=== PATIENT | male | born 1985 | race American Indian/Alaskan Native ===

== ENCOUNTER 2017-08-15 23:45 | Emergency (ER) | payer SELFPAY ==
[2017-08-16 00:06] VITALS: BP 117/81
[2017-08-16] MEDS ORDERED: ASPIRIN PO ONE (00:07)
[2017-08-16 00:32] LABS: Basophils % (Auto) 0.2 % (0.0-1.8); Eosinophils # (Auto) 0.1 K/mm3 (0.0-0.4); Eosinophils % (Auto) 1.7 % (0.0-4.3); Hemoglobin 14.9 gm/dl (11.8-15.2); Lymphocytes # (Auto) 3.2 K/mm3 (1.2-5.4); Lymphocytes % (Auto) 42.1 % (13.4-35.0); Mean Corpuscular HGB Conc 33 % (32-34); Mean Corpuscular Hemoglobin 29 pg (28-32); Mean Corpuscular Volume 88 fl (84-94); Monocytes # (Auto) 0.7 K/mm3 (0.0-0.8); Monocytes % (Auto) 9.5 % (0.0-7.3); Platelet Count 203 K/mm3 (140-440); Red Blood Count 5.11 M/mm3 (3.65-5.03); Red Cell Distribution Width 13.5 % (13.2-15.2)
[2017-08-16 00:43] LABS: BUN/Creatinine Ratio 10; Blood Urea Nitrogen 8 mg/dL (9-20); Calcium 8.6 mg/dL (8.4-10.2); Hemolysis Index 133
== END 2017-08-16 02:40 | disposition left against medical advice (07) ==
LOC: ED 23:45
DX: R07.89 Other chest pain (principal); Z53.21 Procedure and treatment not carried out due to patient leaving prior to being seen by health care provider
CPT/HCPCS: 36415; 80048; 84484; 85025; 93005; 93010

== ENCOUNTER 2017-11-29 21:36 | Emergency (ER) | payer SELFPAY ==
[2017-11-30 00:12] LABS: Alanine Aminotransferase 13 units/L (7-56); Albumin 4.4 g/dL (3.9-5); BUN/Creatinine Ratio 9; Blood Urea Nitrogen 9 mg/dL (9-20); Hemolysis Index 5
[2017-11-30 00:15] LABS: Basophils % (Auto) 0.5 % (0.0-1.8); Eosinophils # (Auto) 0.3 K/mm3 (0.0-0.4); Eosinophils % (Auto) 3.8 % (0.0-4.3); Hematocrit 43.4 % (35.5-45.6); Hemoglobin 14.5 gm/dl (11.8-15.2); Lymphocytes # (Auto) 3.2 K/mm3 (1.2-5.4); Lymphocytes % (Auto) 40.9 % (13.4-35.0); Mean Corpuscular HGB Conc 33 % (32-34); Mean Corpuscular Hemoglobin 30 pg (28-32); Mean Corpuscular Volume 89 fl (84-94); Monocytes # (Auto) 0.8 K/mm3 (0.0-0.8); Monocytes % (Auto) 10.4 % (0.0-7.3); Platelet Count 163 K/mm3 (140-440); Red Blood Count 4.87 M/mm3 (3.65-5.03); Red Cell Distribution Width 13.3 % (13.2-15.2)
--- NOTE | 2017-11-30 03:08 | Emergency Department Report ---
ED General Adult HPI - General Chief complaint: Extremity Injury, Lower Stated complaint: RIGHT LEG SWELLING Time Seen by Provider: 11/30/17 02:56 Source: patient Mode of arrival: Ambulatory Limitations: No Limitations - History of Present Illness Initial comments: Patient is a 32 years old male with no significant past medical history. Patient presented to the ER complaining of right leg swelling since yesterday. Patient denied any injury, fever, long travel or history of DVT or PE before. - Related Data Previous Rx's Medication Instructions Recorded Last Taken Type Naproxen [Naprosyn] 500 mg PO BID #14 tablet 11/30/17 Unknown Rx Allergies Allergy/AdvReac Type Severity Reaction Status Date / Time No Known Allergies Allergy Verified 08/16/17 08:34 ED Review of Systems ROS: Stated complaint: RIGHT LEG SWELLING Other details as noted in HPI Comment: All other systems reviewed and negative ENT: denies: throat pain, dental pain Cardiovascular: denies: chest pain, palpitations, dyspnea on exertion Gastrointestinal: denies: abdominal pain, nausea, vomiting, diarrhea, constipation, hematemesis, melena, hematochezia Genitourinary: denies: urgency, dysuria, frequency, hematuria, discharge, testicular pain, testicular mass Neurological: denies: headache, weakness, numbness, paresthesias, confusion ED Past Medical Hx - Past Medical History Previous Medical History?: No - Surgical History Past Surgical History?: No - Social History Smoking Status: Never Smoker Substance Use Type: None - Medications Home Medications: Home Medications Medication Instructions Recorded Confirmed Last Taken Type Naproxen [Naprosyn] 500 mg PO BID #14 tablet 11/30/17 Unknown Rx ED Physical Exam - General Limitations: No Limitations General appearance: alert, in no apparent distress - Head Head exam: Present: atraumatic, normocephalic, normal inspection - ENT ENT exam: Present: normal exam, normal orophraynx - Neck Neck exam: Present: normal inspection, full ROM. Absent: tenderness, meningismus, lymphadenopathy, thyromegaly - Respiratory Respiratory exam: Present: normal lung sounds bilaterally. Absent: respiratory distress, wheezes, rales, rhonchi, chest wall tenderness, accessory muscle use, decreased breath sounds, prolonged expiratory - Cardiovascular Cardiovascular Exam: Present: regular rate, normal rhythm, normal heart sounds - GI/Abdominal GI/Abdominal exam: Present: soft, normal bowel sounds. Absent: distended, tenderness, guarding, rebound, rigid, organomegaly, mass, bruit, pulsatile mass , hernia - Extremities Exam Extremities exam: Present: normal inspection, full ROM, normal capillary refill , other (no clinical evidence of swelling on the right leg.). Absent: tenderness, pedal edema, joint swelling, calf tenderness - Back Exam Back exam: Present: normal inspection, full ROM. Absent: tenderness, CVA tenderness (R), CVA tenderness (L), paraspinal tenderness, vertebral tenderness - Neurological Exam Neurological exam: Present: alert, oriented X3, CN II-XII intact, normal gait - Skin Skin exam: Present: warm ED Course Vital Signs 11/29/17 11/30/17 11/30/17 22:12 04:25 05:19 Temperature 64 F L 98.4 F Pulse Rate 64 70 75 Respiratory 17 16 16 Rate Blood Pressure 134/82 Blood Pressure 123/69 127/59 [Right] O2 Sat by Pulse 99 99 100 Oximetry 11/30/17 05:20 Temperature Pulse Rate 77 Respiratory Rate Blood Pressure Blood Pressure [Right] O2 Sat by Pulse Oximetry ED Medical Decision Making - Lab Data Result diagrams: 11/29/17 22:34 11/29/17 22:34 - Medical Decision Making Patient is a low-risk probability for DVT with a negative d-dimer. I advised patient to follow up with his primary care physician and follow-up for further testing if needed. Critical care attestation.: If time is entered above; I have spent that time in minutes in the direct care of this critically ill patient, excluding procedure time. ED Disposition Clinical Impression: Right leg swelling Disposition: -01 TO HOME OR SELFCARE Is pt being admited?: No Condition: Stable Instructions: Leg Edema (ED) Prescriptions: Naproxen [Naprosyn] 500 mg PO BID #14 tablet Referrals: PRIMARY CARE, [Primary Care Provider] - 3-5 Days
[2017-11-30 05:20] VITALS: BP 127/59
== END 2017-11-30 05:20 | disposition home or self-care (01) ==
LOC: ED 21:36
DX: M79.89 Other specified soft tissue disorders (principal)
CPT/HCPCS: 36415; 80053; 85025; 85379; 99282

== ENCOUNTER 2018-07-08 13:21 | Emergency (ER) | payer SELFPAY | END 2018-07-08 14:41 | LOC: ED 13:21 ==

== ENCOUNTER 2018-07-08 16:31 | Emergency (ER) | payer SELFPAY ==
[2018-07-08 16:38] VITALS: BP 110/67
--- NOTE | 2018-07-08 17:32 | Emergency Department Report ---
ED Back Pain/Injury HPI - General Chief Complaint: Back Pain/Injury Stated Complaint: (R) SIDE PAIN Time Seen by Provider: 07/08/18 17:15 Source: patient Limitations: No Limitations - History of Present Illness Complaint: back pain -: Gradual, month(s) (4) Similar Symptoms Previously: Yes Place: home Radiation: none Severity: mild Quality: dull, aching Consistency: constant Improves With: none Worsens With: movement, sitting upright, walking, other (twisting back) Context: turning/twisting, bending Associated Symptoms: other (no loss of bowel or bladder. normal urniation). denies: weakness, difficulty walking, cough, difficulty urinating, diaphoresis, incontinence, malaise, shortness of breath, syncope - Related Data Previous Rx's Medication Instructions Recorded Last Taken Type Acetaminophen [Acetaminophen TAB] 650 mg PO Q4H PRN #15 tablet 04/19/18 Unknown Rx Doxycycline [Vibramycin CAP] 100 mg PO Q12HR #14 capsule 04/19/18 Unknown Rx Polyethylene Glycol 3350 [Miralax 17 gm PO QDAY PRN #30 powd.pack 04/19/18 Unknown Rx 3350] amLODIPine [Norvasc] 2.5 mg PO QDAY #30 tablet 04/19/18 Unknown Rx methylPREDNISolone [Medrol Dose 1 dose PO DAILY #1 pack 04/19/18 Unknown Rx Madhav] oxyCODONE /ACETAMINOPHEN [Percocet 1 tab PO Q6H PRN #10 tablet 04/19/18 Unknown Rx 5/325 mg] Cyclobenzaprine [Flexeril] 10 mg PO TID PRN #30 tablet 07/01/18 Unknown Rx Menthol/Camphor [[place] 1 applicatio TP QID PRN #1 tube 07/01/18 Unknown Rx Ointment] Naproxen [Naprosyn] 500 mg PO BID PRN #30 tablet 07/01/18 Unknown Rx Ketorolac [Toradol] 10 mg PO Q6H PRN #20 tablet 07/08/18 Unknown Rx Methocarbamol [Robaxin-750] 750 mg PO Q8HR #20 tablet 07/08/18 Unknown Rx Allergies Allergy/AdvReac Type Severity Reaction Status Date / Time No Known Allergies Allergy Verified 01/27/18 08:51 ED Review of Systems ROS: Stated complaint: (R) SIDE PAIN Other details as noted in HPI Constitutional: denies: chills, fever Eyes: denies: eye pain, eye discharge, vision change ENT: denies: ear pain, throat pain Respiratory: denies: cough, shortness of breath, wheezing Cardiovascular: denies: chest pain, palpitations Endocrine: no symptoms reported Gastrointestinal: denies: abdominal pain, nausea, diarrhea Genitourinary: denies: urgency, dysuria Musculoskeletal: back pain. denies: joint swelling, arthralgia Skin: denies: rash, lesions Neurological: denies: headache, weakness, paresthesias Psychiatric: denies: anxiety, depression Hematological/Lymphatic: denies: easy bleeding, easy bruising ED Past Medical Hx - Past Medical History Previous Medical History?: No Hx Congestive Heart Failure: (this is questionable pt denies) Hx Diabetes: No Hx Asthma: No Hx COPD: No Additional medical history: Questionable history of hep C,right knee/leg pain,anxiety disorder pt. denies any history - Surgical History Past Surgical History?: No Additional Surgical History: patient denies any surgeries - Social History Smoking Status: Never Smoker Substance Use Type: None - Medications Home Medications: Home Medications Medication Instructions Recorded Confirmed Last Taken Type Acetaminophen [Acetaminophen TAB] 650 mg PO Q4H PRN #15 tablet 04/19/18 Unknown Rx Doxycycline [Vibramycin CAP] 100 mg PO Q12HR #14 capsule 04/19/18 Unknown Rx Polyethylene Glycol 3350 [Miralax 17 gm PO QDAY PRN #30 powd.pack 04/19/18 Unknown Rx 3350] amLODIPine [Norvasc] 2.5 mg PO QDAY #30 tablet 04/19/18 Unknown Rx methylPREDNISolone [Medrol Dose 1 dose PO DAILY #1 pack 04/19/18 Unknown Rx Madhav] oxyCODONE /ACETAMINOPHEN [Percocet 1 tab PO Q6H PRN #10 tablet 04/19/18 Unknown Rx 5/325 mg] Cyclobenzaprine [Flexeril] 10 mg PO TID PRN #30 tablet 07/01/18 Unknown Rx Menthol/Camphor [[place] 1 applicatio TP QID PRN #1 tube 07/01/18 Unknown Rx Ointment] Naproxen [Naprosyn] 500 mg PO BID PRN #30 tablet 07/01/18 Unknown Rx Ketorolac [Toradol] 10 mg PO Q6H PRN #20 tablet 07/08/18 Unknown Rx Methocarbamol [Robaxin-750] 750 mg PO Q8HR #20 tablet 07/08/18 Unknown Rx ED Physical Exam - General Limitations: No Limitations General appearance: alert, in no apparent distress - Head Head exam: Present: atraumatic, normocephalic - Eye Eye exam: Present: normal appearance. Absent: PERRL, EOMI Pupils: Absent: normal accommodation - ENT ENT exam: Present: normal exam, mucous membranes moist - Neck Neck exam: Present: normal inspection - Respiratory Respiratory exam: Present: normal lung sounds bilaterally. Absent: respiratory distress - Cardiovascular Cardiovascular Exam: Present: regular rate, normal rhythm. Absent: systolic murmur, diastolic murmur, rubs, gallop - GI/Abdominal GI/Abdominal exam: Present: soft, normal bowel sounds. Absent: tenderness, guarding - Rectal Rectal exam: Present: deferred - Extremities Exam Extremities exam: Present: normal inspection, normal capillary refill - Back Exam Back exam: Present: normal inspection, muscle spasm, paraspinal tenderness, other (pain with slr. neg spurlings). Absent: CVA tenderness (R), CVA tenderness (L), vertebral tenderness, rash noted - Neurological Exam Neurological exam: Present: alert, oriented X3, CN II-XII intact, normal gait - Psychiatric Psychiatric exam: Present: normal affect, normal mood - Skin Skin exam: Present: warm, dry, intact, normal color. Absent: rash ED Course Vital Signs 07/08/18 16:34 Temperature 98.6 F Pulse Rate 65 Respiratory 16 Rate Blood Pressure 110/67 O2 Sat by Pulse 99 Oximetry Critical care attestation.: If time is entered above; I have spent that time in minutes in the direct care of this critically ill patient, excluding procedure time. ED Disposition Clinical Impression: Low back strain, Lumbago Disposition: - TO HOME OR SELFCARE Is pt being admited?: No Does the pt Need Aspirin: No Condition: Stable Instructions: Back Pain (ED), Lumbar Radiculopathy (ED) Prescriptions: Ketorolac [Toradol] 10 mg PO Q6H PRN #20 tablet PRN Reason: Pain Methocarbamol [Robaxin-750] 750 mg PO Q8HR #20 tablet Referrals: PRIMARY CARE, [Primary Care Provider] - 3-5 Days AMRITA ALLRED MD [Staff Physician] - 3-5 Days [facility] [Provider Group] - 3-5 Days
== END 2018-07-08 17:47 | disposition home or self-care (01) ==
LOC: ED 16:31 → MERGE 16:31 → ED 17:47
DX: S39.012A Strain of muscle, fascia and tendon of lower back, initial encounter (principal); X58.XXXA Exposure to other specified factors, initial encounter; Y93.89 Activity, other specified; Y92.89 Other specified places as the place of occurrence of the external cause; Y99.8 Other external cause status
CPT/HCPCS: 99282

== ENCOUNTER 2018-08-06 06:56 | Emergency (ER) | payer SELFPAY ==
[2018-08-06] MEDS ORDERED: IBUPROFEN PO ONE (07:57)
[2018-08-06] MEDS ORDERED: FLEXERIL PO ONE (07:57)
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
[2018-08-06 09:13] VITALS: BP 130/70
--- NOTE | 2018-08-06 09:26 | Cat Scan Report ---
CT SCAN OF THE CERVICAL SPINE: HISTORY: Pain. TECHNIQUE: Contiguous 1.25 mm axial images of the cervical spine were obtained. Sagittal and coronal reformatted images. FINDINGS: There is normal alignment of the cervical spine. The body, pedicles and posterior ligaments appear normal. No evidence of fracture or subluxation is seen. The spinal canal appears normal. The prevertebral soft tissues appear normal. IMPRESSION: Unremarkable CT of the cervical spine.
--- NOTE | 2018-08-06 09:28 | Cat Scan Report ---
CT LUMBAR SPINE WITHOUT CONTRAST History: Pain. Technique: Helical CT with sagittal and coronal reformatted images. Findings: The vertebral bodies and posterior elements are intact. There is no evidence for fracture, subluxation or bone lesion. Mild disc space narrowing is suspected at L4-5. Mild bulging discs are suggested at L3-4 and L4-5. Although intraspinal contents can be obscured on noncontrast CT, no high-grade central canal stenosis or epidural hematoma is suspected. Impression: Mild degenerative disc disease at L3-4 and L4-5. No acute process.
== END 2018-08-06 09:11 | disposition home or self-care (01) ==
LOC: ED 06:56 → MERGE 06:56 → ED 09:11
DX: M54.2 Cervicalgia (principal); M54.5 Low back pain; V89.0XXA Person injured in unspecified motor-vehicle accident, nontraffic, initial encounter; Y93.89 Activity, other specified; Y92.410 Unspecified street and highway as the place of occurrence of the external cause; Y99.8 Other external cause status
CPT/HCPCS: 72125; 72131; 99283

== ENCOUNTER 2018-09-15 20:45 | Emergency (ER) | payer OTHER ==
--- NOTE | 2018-09-15 21:26 | Emergency Department Report ---
Chief Complaint: Back Pain/Injury Stated Complaint: BACK PAIN Time Seen by Provider: 09/15/18 21:25 - HPI History of Present Illness: This is a 33 y.o. male that presents with acute on chronic low back pain x 1 week. - ROS Review of Systems: low back pain - Exam Vital Signs: Vital Signs 09/15/18 21:24 Temperature 98.4 F Pulse Rate 64 Respiratory 16 Rate Blood Pressure 122/80 O2 Sat by Pulse 99 Oximetry MSE screening note: Focused history and physical exam performed. Due to findings the following was ordered: [facility] for further evaluation ED Disposition for MSE Condition: Stable
--- NOTE | 2018-09-15 23:26 | Emergency Department Report ---
ED Back Pain/Injury HPI - General Chief Complaint: Back Pain/Injury Stated Complaint: BACK PAIN Time Seen by Provider: 09/15/18 21:25 Source: patient Limitations: No Limitations - History of Present Illness Initial Comments: This is a 33-year-old [place] male that presents to the emergency room with acute on chronic low back pain x 1 week. Patient states he was seen in this e mergency room several times and usually receives refills on muscle relaxants and pain medication. States primary care is at [place] and it is very hard to get an appointment. He currently reports pain is 8 out of 10 on pain scale worse with movement. He reports pain is achy sensation to lower back. He denies recent injury, warm to area, paresthesias, weaknesses, numbness or tingling, swelling, or bruising. MD Complaint: back pain Onset/Timin -: week(s) Similar Symptoms Previously: Yes Place: home Radiation: none Severity: moderate Severity scale (0 -10): 8 Quality: aching Consistency: intermittent Improves With: none Worsens With: movement Context: unknown Associated Symptoms: denies: numbness, difficulty urinating, incontinence, fever/chills - Related Data Previous Rx's Medication Instructions Recorded Last Taken Type amLODIPine [Norvasc] 2.5 mg PO QDAY #30 tablet 04/19/18 Unknown Rx Menthol/Camphor [[place] 1 applicatio TP QID PRN #1 tube 07/01/18 Unknown Rx Ointment] Cyclobenzaprine [Flexeril] 10 mg PO TID PRN #10 tablet 08/06/18 Unknown Rx predniSONE [Deltasone] 20 mg PO DAILY #5 tablet 08/06/18 Unknown Rx Naproxen [Naprosyn] 500 mg PO TID PRN #20 tablet 09/15/18 Unknown Rx methOCARBAMOL [Robaxin TAB] 500 mg PO BID PRN #15 tab 09/15/18 Unknown Rx Allergies Allergy/AdvReac Type Severity Reaction Status Date / Time No Known Allergies Allergy Verified 01/27/18 08:51 ED Review of Systems ROS: Stated complaint: BACK PAIN Other details as noted in HPI Constitutional: denies: chills, fever Respiratory: denies: cough, shortness of breath, wheezing Cardiovascular: denies: chest pain, palpitations Gastrointestinal: denies: abdominal pain, nausea, diarrhea Musculoskeletal: back pain (lower back). denies: joint swelling, arthralgia Skin: denies: rash, lesions Neurological: denies: headache, weakness, paresthesias Psychiatric: denies: anxiety, depression ED Past Medical Hx - Past Medical History Questionable history of hep C,right knee/leg pain,anxiety disorder pt. denies any history Family history: no significant family history ED Back Pain Physical Exam - Exam General: Vital signs noted. No distress. Alert and acting appropriately. Back/Abdomen: Yes Sacroiliac Tenderness, No Abdominal Tenderness, No Perithoracic Tenderness, No Perilumbar Tenderness, No Flank Tenderness, No Straight Leg Raise Pain Neuro: Yes Normal Sensation, Yes Normal DTR's, Yes Normal Gait, No Motor Weakness ED Course Vital Signs 09/15/18 21:24 Temperature 98.4 F Pulse Rate 64 Respiratory 16 Rate Blood Pressure 122/80 O2 Sat by Pulse 99 Oximetry ED Medical Decision Making - Medical Decision Making Patient was examined by me. Vitals are normal and patient is in no acute distress. Acute on chronic low back pain. CT of the L-spine obtained last month, Mild degenerative disc disease at L3-4 and L4-5. Start Toradol and Robaxin. Plan discussed with patient to discharge home and treat outpatient. He agrees with ER plan. Patient discharged home in stable condition. Follow up with PCP in 2-3 days. Critical care attestation.: If time is entered above; I have spent that time in minutes in the direct care of this critically ill patient, excluding procedure time. ED Disposition Clinical Impression: Muscle strain Chronic lower back pain Qualifiers: Back pain laterality: bilateral Sciatica presence: without sciatica Qualified Code(s): M54.5 - Low back pain Disposition: - TO HOME OR SELFCARE Is pt being admited?: No Does the pt Need Aspirin: No Condition: Stable Instructions: Muscle Strain (ED) Additional Instructions: Rest Use ice or heat on affected area for 20 minutes and off for 2 hours. Take pain medication as needed for pain. Don't drive or operate heavy machinery while taking muscle relaxers because they may cause drowsiness. Follow up with Primary Care Provider in 2-3 days. Prescriptions: Naproxen [Naprosyn] 500 mg PO TID PRN #20 tablet PRN Reason: Pain , Severe (7-10) methOCARBAMOL [Robaxin TAB] 500 mg PO BID PRN #15 tab PRN Reason: Muscle Spasm Referrals: [facility] [Outside] - 3-5 Days [facility] [Outside] - 3-5 Days [facility] [Outside] - 3-5 Days Time of Disposition: 23:34
[2018-09-15 23:47] VITALS: BP 124/72
== END 2018-09-15 23:49 | disposition home or self-care (01) ==
LOC: ED 20:45 → MERGE 20:45 → ED 23:49
DX: S39.012A Strain of muscle, fascia and tendon of lower back, initial encounter (principal); X58.XXXA Exposure to other specified factors, initial encounter; Y93.89 Activity, other specified; Y92.89 Other specified places as the place of occurrence of the external cause; Y99.8 Other external cause status
CPT/HCPCS: 99282

== ENCOUNTER 2018-12-12 14:24 | Emergency (ER) | payer SELFPAY ==
[2018-12-12 14:32] VITALS: BP 147/70
--- NOTE | 2018-12-12 14:32 | Emergency Department Report ---
Blank Doc - Documentation Documentation: This is a 33-year-old male that presents with lower back pain and dizziness. This initial assessment/diagnostic orders/clinical plan/treatment(s) is/are subject to change based on patient's health status, clinical progression and re- assessment by fellow clinical providers in the ED. Further treatment and workup at subsequent clinical providers discretion. Patient/guardians urged not to elope from the ED as their condition may be serious if not clinically assessed and managed. Initial orders include: 1- Patient sent to [facility] for further evaluation and treatment 2- UA 3- labs
[2018-12-12 14:57] LABS: Basophils % (Auto) 0.3 % (0.0-1.8); Eosinophils % (Auto) 0.3 % (0.0-4.3); Hematocrit 45.4 % (35.5-45.6); Hemoglobin 15.4 gm/dl (11.8-15.2); Lymphocytes # (Auto) 1.3 K/mm3 (1.2-5.4); Lymphocytes % (Auto) 9.1 % (13.4-35.0); Mean Corpuscular HGB Conc 34 % (32-34); Mean Corpuscular Volume 88 fl (84-94); Monocytes # (Auto) 1.6 K/mm3 (0.0-0.8); Monocytes % (Auto) 11.9 % (0.0-7.3); Platelet Count 174 K/mm3 (140-440); Red Blood Count 5.18 M/mm3 (3.65-5.03); Red Cell Distribution Width 13.2 % (13.2-15.2)
[2018-12-12] MEDS ORDERED: IBUPROFEN PO ONE (15:09)
[2018-12-12] MEDS ORDERED: ZOFRAN ODT PO ONE (15:09)
[2018-12-12] MEDS ORDERED: NORCO 5/325 PO ONE (15:09)
--- NOTE | 2018-12-12 15:11 | Emergency Department Report ---
ED General Adult HPI - General Chief complaint: Dizziness Stated complaint: HEADACHE Time Seen by Provider: 12/12/18 14:32 Source: patient Mode of arrival: Ambulatory Limitations: No Limitations - History of Present Illness Initial comments: Mr. Fontana is a 33-year-old male with history of kidney disease presents with headache chest pain back pain and lightheadedness since this morning. He just feels unwell. Generalized malaise. Diffuse nonspecific pain. No fever. No chills. No sick contacts. 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 I reviewed previous medical record, Mr. Fonseca has a medical record associated with [facility] [place] #[id number]. He has history of sepsis, fever, recurrent chest pain, atypical chest pain. Chronic back pain. Pyelonephritis. According to lumbar MRI, he has mild to moderate degenerative changes at L4-L5 and L5-S1. He also has been limited due to history of ataxic gait. Under this medical record Mr. Fontana has innumerable ED visits. According to previous electronic medical record, Intellectual impairment is a concern with history of congenital hydrocephalus. He also has a history of h omelessness. -: Gradual, This morning Location: head, chest, back Quality: aching Consistency: constant Improves with: none Worsens with: none Associated Symptoms: malaise - Related Data Previous Rx's Medication Instructions Recorded Last Taken Type Naproxen [Naprosyn] 500 mg PO BID #14 tablet 11/30/17 Unknown Rx Allergies Allergy/AdvReac Type Severity Reaction Status Date / Time No Known Allergies Allergy Verified 12/12/18 14:26 ED Review of Systems ROS: Stated complaint: HEADACHE Other details as noted in HPI Comment: All other systems reviewed and negative Constitutional: malaise Respiratory: denies: shortness of breath Cardiovascular: chest pain ED Past Medical Hx - Past Medical History Previous Medical History?: No Hx Renal Disease: No - Surgical History Past Surgical History?: No - Social History Smoking Status: Never Smoker Substance Use Type: None - Medications Home Medications: Home Medications Medication Instructions Recorded Confirmed Last Taken Type Naproxen [Naprosyn] 500 mg PO BID #14 tablet 11/30/17 Unknown Rx ED Physical Exam - General Limitations: No Limitations General appearance: alert, in no apparent distress - Head Head exam: Present: atraumatic, normocephalic - Eye Eye exam: Present: normal appearance - ENT ENT exam: Present: mucous membranes moist - Neck Neck exam: Present: normal inspection, full ROM - Respiratory Respiratory exam: Present: normal lung sounds bilaterally. Absent: respiratory distress, wheezes, rales, rhonchi - Cardiovascular Cardiovascular Exam: Present: regular rate, normal rhythm, normal heart sounds. Absent: systolic murmur, diastolic murmur, rubs, gallop - GI/Abdominal GI/Abdominal exam: Present: soft, normal bowel sounds. Absent: distended, tenderness, guarding, rebound - Rectal Rectal exam: Present: deferred - Extremities Exam Extremities exam: Present: normal inspection - Back Exam Back exam: Present: normal inspection - Neurological Exam Neurological exam: Present: alert, oriented X3 - Psychiatric Psychiatric exam: Present: normal affect, normal mood - Skin Skin exam: Present: warm, dry, intact, normal color. Absent: rash ED Course Vital Signs 12/12/18 14:30 Temperature 98.5 F Pulse Rate 101 H Respiratory 16 Rate Blood Pressure 147/70 O2 Sat by Pulse 96 Oximetry ED Medical Decision Making - Lab Data Result diagrams: 12/12/18 14:42 Laboratory Results - last 24 hr 12/12/18 12/12/18 14:42 14:42 WBC 13.8 H RBC 5.18 H Hgb 15.4 H Hct 45.4 MCV 88 MCH 30 MCHC 34 RDW 13.2 Plt Count 174 Lymph % (Auto) 9.1 L [place] % (Auto) 11.9 H Eos % (Auto) 0.3 Baso % (Auto) 0.3 Lymph # 1.3 [place] # 1.6 H Eos # 0.0 Baso # 0.0 Seg Neutrophils % 78.4 H Seg Neutrophils # 10.8 H Sodium 139 Potassium 3.9 Chloride 101.7 Carbon Dioxide 21 L Anion Gap 20 BUN 12 Creatinine 1.1 Estimated GFR > 60 BUN/Creatinine Ratio 11 Glucose 93 Calcium 9.1 - Radiology Data Radiology results: image reviewed interpreted by me: Chest X-ray PA/Lateral two-view radiographs, interpreted by me. My impression: No infiltrate, no pneumothorax, normal cardiac silhouette, normal mediastinum, no gross osseous abnormality, no acute process - Medical Decision Making Generalized malaise, no evidence of pneumonia. Given reassurance. Suspect acute on chronic back pain. Critical care attestation.: If time is entered above; I have spent that time in minutes in the direct care of this critically ill patient, excluding procedure time. ED Disposition Clinical Impression: Malaise, Back pain Disposition: DC-01 TO HOME OR SELFCARE Is pt being admited?: No Does the pt Need Aspirin: No Condition: Stable Instructions: Chronic Back Pain (ED) Referrals: [facility] [Outside] - 3-5 Days
[2018-12-12 15:31] LABS: BUN/Creatinine Ratio 11; Blood Urea Nitrogen 12 mg/dL (9-20); Calcium 9.1 mg/dL (8.4-10.2); Hemolysis Index 38
--- NOTE | 2018-12-12 16:26 | XRay Report ---
PROCEDURE: XR CHEST ROUTINE 2V TECHNIQUE: PA and lateral chest radiographs were obtained. HISTORY: generalized malaise, body aches COMPARISONS: None. FINDINGS: Frontal and lateral views the chest were acquired. The heart is normal in size. The lungs a ppear clear. The pleura and mediastinum are within normal limits. IMPRESSION: No active disease in the chest This document is electronically signed by Roberto Aguirre MD., December 12 2018 04:24:48 PM ET
== END 2018-12-12 16:55 | disposition home or self-care (01) ==
LOC: ED 14:24
DX: M54.9 Dorsalgia, unspecified (principal); R51 Headache; R07.89 Other chest pain; R53.81 Other malaise; R42 Dizziness and giddiness
CPT/HCPCS: 36415; 71046; 80048; 85025; Q0162

== ENCOUNTER 2018-12-16 15:36 | Emergency (ER) | payer OTHER ==
--- NOTE | 2018-12-16 16:18 | Event Note ---
ED Screening Note ED Screening Note: pt presents with a sore throat that began yesterday states he is also cough with mucus production +fever +rhinorrhea, and congestion no sick contact no PMHx no daily meds no allergies to meds +seasonal allergies non smoker no ETOH This initial assessment/diagnostic orders/clinical plan/treatment(s) is/are subject to change based on patients health status, clinical progression and re- assessment by fellow clinical providers in the ED. Further treatment and workup at subsequent clinical providers discretion. Patient/guardian urged not to elope from the ED as their condition may be serious if not clinically assessed and managed. Initial orders include: rapid strep sent, CXR given 600 mg of motrin
[2018-12-16] MEDS ORDERED: IBUPROFEN PO ONE ×2 (16:19→16:22)
--- NOTE | 2018-12-16 17:27 | XRay Report ---
PROCEDURE: XR CHEST ROUTINE 2V TECHNIQUE: PA and lateral chest radiographs were obtained. HISTORY: cough, fever COMPARISONS: Chest x-ray dated December 12, 2018. FINDINGS: There is no evidence of infiltrate, pneumothorax or pleural fluid collection. The cardiac silhouette is normal size. The thoracic aorta and bony structures are unremarkable. IMPRESSION: 1. No evidence of an acute pulmonary process. This document is electronically signed by Sveta Garza MD., December 16 2018 05:25:13 PM ET
[2018-12-16] MEDS ORDERED: NACL 0.9% 1000 ML 1,000 ML IV ONE (17:56)
[2018-12-16 18:59] LABS: Hematocrit 38.4 % (35.5-45.6); Hemoglobin 13.3 gm/dl (11.8-15.2); Mean Corpuscular HGB Conc 35 % (32-34); Mean Corpuscular Volume 88 fl (84-94); Platelet Count 167 K/mm3 (140-440); Red Blood Count 4.38 M/mm3 (3.65-5.03); Red Cell Distribution Width 13.1 % (13.2-15.2)
[2018-12-16 19:33] LABS: Alanine Aminotransferase 10 units/L (7-56); Albumin 3.4 g/dL (3.9-5); BUN/Creatinine Ratio 8; Blood Urea Nitrogen 8 mg/dL (9-20); Calcium 8.5 mg/dL (8.4-10.2); Hemolysis Index 6
[2018-12-16 20:40] LABS: Anisocytosis 1+; Band Neutrophils # (Manual) 0.2 K/mm3; Basophils % (Manual) 0 % (0.0-1.8); Platelet Estimate Consistent w Auto; Total Cells Counted 100
[2018-12-16 20:44] VITALS: BP 131/74
--- NOTE | 2018-12-16 21:24 | Emergency Department Report ---
ED General Adult HPI - General Chief complaint: Upper Respiratory Infection Stated complaint: CHEST PAIN/COUGH/SORE THROAT Time Seen by Provider: 12/16/18 16:14 Source: patient Mode of arrival: Ambulatory Limitations: No Limitations - History of Present Illness Initial comments: 33-year-old male to emergency department complaining of sudden onset of fatigue, myalgias and malaise with some fever sensation and mild cough. Also has some throat irritation. Family thinks he may have been dehydrated, has not been drinking a lot of fluids and been hot and also working. Reports no chest pain, palpitations, abdominal pain,. -: Sudden Radiation: non-radiation Severity scale (0 -10): 0 Consistency: constant Improves with: none Worsens with: none Associated Symptoms: denies other symptoms, malaise, nausea/vomiting, weakness. denies: cough, diaphoresis Treatments Prior to Arrival: none - Related Data Previous Rx's Medication Instructions Recorded Last Taken Type Naproxen [Naprosyn] 500 mg PO BID #14 tablet 11/30/17 Unknown Rx Ketorolac [Toradol] 10 mg PO Q6H PRN #15 tablet 12/16/18 Unknown Rx Ondansetron [Zofran ODT TAB] 8 mg PO Q12HR #14 tab.rapdis 12/16/18 Unknown Rx Allergies Allergy/AdvReac Type Severity Reaction Status Date / Time No Known Allergies Allergy Verified 12/12/18 14:26 ED Review of Systems ROS: Stated complaint: CHEST PAIN/COUGH/SORE THROAT Other details as noted in HPI Constitutional: denies: chills, fever Eyes: denies: eye pain, eye discharge, vision change ENT: denies: ear pain, throat pain Respiratory: denies: cough, shortness of breath, wheezing Cardiovascular: denies: chest pain, palpitations Endocrine: no symptoms reported Gastrointestinal: denies: abdominal pain, nausea, diarrhea Genitourinary: denies: urgency, dysuria Musculoskeletal: denies: back pain, joint swelling, arthralgia Skin: denies: rash, lesions Neurological: denies: headache, weakness, paresthesias Psychiatric: denies: anxiety, depression Hematological/Lymphatic: denies: easy bleeding, easy bruising ED Past Medical Hx - Past Medical History Previous Medical History?: Yes Hx Renal Disease: Yes - Surgical History Past Surgical History?: No - Social History Smoking Status: Never Smoker Substance Use Type: Alcohol - Medications Home Medications: Home Medications Medication Instructions Recorded Confirmed Last Taken Type Naproxen [Naprosyn] 500 mg PO BID #14 tablet 11/30/17 Unknown Rx Ketorolac [Toradol] 10 mg PO Q6H PRN #15 tablet 12/16/18 Unknown Rx Ondansetron [Zofran ODT TAB] 8 mg PO Q12HR #14 tab.rapdis 12/16/18 Unknown Rx ED Physical Exam - General Limitations: No Limitations General appearance: alert, in no apparent distress, other (week, but nontoxic- appearing) - Head Head exam: Present: atraumatic, normocephalic - Eye Eye exam: Present: normal appearance, PERRL, EOMI. Absent: scleral icterus, conjunctival injection Pupils: Present: normal accommodation - ENT ENT exam: Present: normal exam, normal orophraynx, mucous membranes moist - Neck Neck exam: Present: normal inspection, full ROM - Respiratory Respiratory exam: Present: normal lung sounds bilaterally. Absent: respiratory distress, wheezes, rales, rhonchi, chest wall tenderness, accessory muscle use, decreased breath sounds - Cardiovascular Cardiovascular Exam: Present: regular rate, normal rhythm. Absent: bradycardia, tachycardia, systolic murmur, diastolic murmur, rubs, gallop - GI/Abdominal GI/Abdominal exam: Present: soft, normal bowel sounds. Absent: distended, tenderness, guarding, hyperactive bowel sounds, hypoactive bowel sounds, organomegaly, mass, bruit - Rectal Rectal exam: Present: deferred - Extremities Exam Extremities exam: Present: normal inspection, full ROM, normal capillary refill - Back Exam Back exam: Present: normal inspection, full ROM, CVA tenderness (L) - Neurological Exam Neurological exam: Present: alert, oriented X3 - Psychiatric Psychiatric exam: Present: normal affect, normal mood - Skin Skin exam: Present: warm, dry, intact, normal color. Absent: rash ED Course Vital Signs 12/16/18 12/16/18 16:05 20:43 Temperature 100.1 F H 98.6 F Pulse Rate 94 H 68 Respiratory 18 20 Rate Blood Pressure 136/77 Blood Pressure 131/74 [Left] O2 Sat by Pulse 100 98 Oximetry ED Medical Decision Making - Lab Data Result diagrams: 12/16/18 18:40 12/16/18 18:40 - Medical Decision Making 31-year-old Turkmen male with sudden onset of malaise, fatigue. No sweats with possibility of dehydration known history of renal insufficiency. He was hydrated with saline, treated with medications and no significant improvement in his alertness and his overall strength. Discussed with family the findings or lack thereof. The need to follow up with her primary care provider in the next 24-48 hours. We'll be been managing his pain and his nausea so he can tolerate orals. There've been advised to put him on a diet for the next Couple days to ensure that he is hydrating appropriately. He reports no alcohol or drug use. No trauma. Critical care attestation.: If time is entered above; I have spent that time in minutes in the direct care of this critically ill patient, excluding procedure time. ED Disposition Clinical Impression: Malaise, Viral syndrome Disposition: DC-01 TO HOME OR SELFCARE Is pt being admited?: No Does the pt Need Aspirin: No Condition: Stable Instructions: Viral Syndrome (ED), Dehydration (ED) Prescriptions: Ketorolac [Toradol] 10 mg PO Q6H PRN #15 tablet PRN Reason: Pain Ondansetron [Zofran ODT TAB] 8 mg PO Q12HR #14 tab.rapdis Referrals: CARTER KLEIN MD [Referring] - 3-5 Days
== END 2018-12-16 21:49 | disposition home or self-care (01) ==
LOC: ED 15:36 → EEVIPCON 15:36 → ED 21:49
DX: B34.9 Viral infection, unspecified (principal); Z79.899 Other long term (current) drug therapy
CPT/HCPCS: 36415; 71046; 80053; 85007; 85025; 87116; 87430; 93005; 93010; 99284; J7030

== ENCOUNTER 2019-02-07 08:25 | Observation (INO) | payer OTHER ==
[2019-02-07] MEDS ORDERED: ASPIRIN PO ONE (08:42)
[2019-02-07 09:08] LABS: Basophils % (Auto) 0.4 % (0.0-1.8); Eosinophils # (Auto) 0.2 K/mm3 (0.0-0.4); Eosinophils % (Auto) 3.8 % (0.0-4.3); Hematocrit 46.6 % (35.5-45.6); Hemoglobin 15.8 gm/dl (11.8-15.2); Lymphocytes # (Auto) 2.4 K/mm3 (1.2-5.4); Lymphocytes % (Auto) 37.6 % (13.4-35.0); Mean Corpuscular HGB Conc 34 % (32-34); Mean Corpuscular Volume 88 fl (84-94); Monocytes # (Auto) 0.5 K/mm3 (0.0-0.8); Monocytes % (Auto) 8.1 % (0.0-7.3); Platelet Count 161 K/mm3 (140-440); Red Blood Count 5.29 M/mm3 (3.65-5.03); Red Cell Distribution Width 13.6 % (13.2-15.2)
[2019-02-07 09:20] LABS: BUN/Creatinine Ratio 8; Blood Urea Nitrogen 8 mg/dL (9-20); Calcium 9.5 mg/dL (8.4-10.2); Hemolysis Index 8
--- NOTE | 2019-02-07 09:21 | XRay Report ---
CHEST PA AND LATERAL VIEWS INDICATION: Chest Pain. COMPARISON: 12/16/2018 FINDINGS: Support devices: None. Heart: Within normal limits. Lungs/Pleura: No acute pulmonary or pleural findings. IMPRESSION: 1. No significant abnormality. Signer Name: Nahum Shen MD Signed: 02/07/2019 9:16 AM Workstation Name: [id number]
[2019-02-07] MEDS ORDERED: SUBLIMAZE IV ONE ×2 (10:01→12:21)
[2019-02-07] MEDS ORDERED: ZOFRAN IV ONE (10:01)
--- NOTE | 2019-02-07 10:21 | Emergency Department Report ---
HPI - General Chief Complaint: Chest Pain Time Seen by Provider: 02/07/19 09:44 - HPI HPI: Room 3 The patient is a 33-year-old male presenting with a chief complaint of chest pain and bilateral flank pain. The patient states she has had bilateral flank pain for approximately 1 week. Patient admits to left-sided chest pain for the past 2-3 days. Patient discussed pain is sharp and constant in nature. Patient admits to pleurisy. Patient states he's had a cough for "a couple days" but has been nonproductive. Patient missed the shortness of breath and nausea but denies vomiting. Patient missed occasional diaphoresis. Patient denies history of fever. Patient currently gets a chest pain score of 10/10. Patient states she's never had a stress test or cardiac catheterization Location: [See above] Duration: [See above] Quality: [See above] Severity: [See above] Modifying factors: [see above] Context: [see above] Mode of transportation: [not driving] ED Past Medical Hx - Past Medical History Previous Medical History?: Yes Hx Congestive Heart Failure: Yes Hx Renal Disease: Yes (NOT ON DIALYSIS) Hx Psychiatric Treatment: Yes Additional medical history: Questionable history of hep C,right knee/leg pain,anxiety disorder pt. denies any history, intellectual disability - Surgical History Past Surgical History?: No Additional Surgical History: patient denies any surgeries - Family History Family history: no significant - Social History Smoking Status: Never Smoker Substance Use Type: None (denies illicit drug use) - Medications Home Medications: Home Medications Medication Instructions Recorded Confirmed Last Taken Type No Known Home Medications [No 02/07/19 02/07/19 Unknown History Reported Home Medications] ED Review of Systems ROS: Stated complaint: CHEST PAIN/LFT SIDE HIP PAIN Other details as noted in HPI Constitutional: diaphoresis. denies: fever Eyes: denies: eye pain ENT: denies: throat pain Respiratory: shortness of breath Cardiovascular: chest pain Endocrine: no symptoms reported Gastrointestinal: nausea. denies: abdominal pain, vomiting Genitourinary: denies: dysuria Musculoskeletal: back pain Neurological: denies: headache Physical Exam - Physical Exam Vital Signs: Vital Signs 02/07/19 08:35 Temperature 97.9 F Pulse Rate 65 Respiratory 16 Rate Blood Pressure 137/82 O2 Sat by Pulse 100 Oximetry Physical Exam: GENERAL: The patient is well-developed well-nourished male on a stretcher appearing to be in mild discomfort. [] HEENT: Normocephalic. Atraumatic. Extraocular motions are intact. Patient has moist mucous membranes. NECK: Supple. Trachea midline CHEST/LUNGS: Clear to auscultation. There is no respiratory distress noted. HEART/CARDIOVASCULAR: Regular. There is no tachycardia. There is no gallop rub or murmur. ABDOMEN: Abdomen is soft, nontender. Patient has normal bowel sounds. There is no abdominal distention. SKIN: There is no rash. There is no edema. There is no diaphoresis. NEURO: The patient is awake, alert, and oriented. The patient is cooperative. The patient has normal speech MUSCULOSKELETAL: There is bilateral CVA tenderness. There is no evidence of acute injury. ED Course Vital Signs 02/07/19 08:35 Temperature 97.9 F Pulse Rate 65 Respiratory 16 Rate Blood Pressure 137/82 O2 Sat by Pulse 100 Oximetry ED Medical Decision Making - Lab Data Result diagrams: 02/07/19 08:52 02/07/19 08:52 Laboratory Tests 02/07/19 02/07/19 02/07/19 08:52 08:52 10:25 WBC 6.4 RBC 5.29 H Hgb 15.8 H Hct 46.6 H MCV 88 MCH 30 MCHC 34 RDW 13.6 Plt Count 161 Lymph % (Auto) 37.6 H [place] % (Auto) 8.1 H Eos % (Auto) 3.8 Baso % (Auto) 0.4 Lymph # 2.4 [place] # 0.5 Eos # 0.2 Baso # 0.0 Seg Neutrophils % 50.1 Seg Neutrophils # 3.2 Sodium 142 Potassium 4.6 Chloride 103.5 Carbon Dioxide 32 H Anion Gap 11 BUN 8 L Creatinine 1.0 Estimated GFR > 60 BUN/Creatinine Ratio 8 Glucose 88 Calcium 9.5 Troponin T < 0.010 Urine Color Yellow Urine Turbidity Clear Urine pH 6.0 Ur Specific [place] 1.014 Urine Protein <15 mg/dl Urine Glucose (UA) Neg Urine Ketones Neg Urine Blood Neg Urine Nitrite Neg Urine Bilirubin Neg Urine Urobilinogen < 2.0 Ur Leukocyte Esterase Neg Urine WBC (Auto) 4.0 Urine RBC (Auto) 2.0 - EKG Data -: EKG Interpreted by Ak EKG shows normal: sinus rhythm Rate: normal (65 bpm) - EKG Data When compared to previous EKG there are: previous EKG unavailable Interpretation: other (no skin changes seen) - Radiology Data Radiology results: report reviewed (chest x-ray, CT chest, CT abdomen and pelvis), image reviewed (chest x-ray, CT chest, CT abdomen and pelvis) interpreted by me: Chest x-ray-no focal infiltrates, no pneumothorax [address] [address] XRay Report Signed Patient: HEATHER LEVINE MR# : [id number] : 1985 Acct:[id number] Age/Sex: 33 / M ADM Date: 02/07/19 Loc: ED Attending Dr: Ordering Physician: KARYNA COLORADO MD Date of Service: 02/07/19 Procedure(s): XR chest routine 2V Accession Number(s): [id number] cc: ED MD STANISLAV Fluoro Time In Minutes: CHEST PA AND LATERAL VIEWS INDICATION: Chest Pain. COMPARISON: 12/16/2018 FINDINGS: Support devices: None. Heart: Within normal limits. Lungs/Pleura: No acute pulmonary or pleural findings. IMPRESSION: 1. No significant abnormality. Signer Name: Nahum Shen MD Signed: 02/07/2019 9:16 AM Workstation Name: [id number] Transcribed By: Dictated By: Nahum Shen MD Electronically Authenticated By: Nahum Shen MD Signed Date/Time: 02/07/19915 DD/ 5 TD/TT: [address] [address] Cat Scan Report Signed Patient: HEATHER LEVINE MR# : [id number] : 1985 Acct:[id number] Age/Sex: 33 / M ADM Date: 02/07/19 Loc: ED Attending Dr: Ordering Physician: SALINA WAGNER MD Date of Service: 02/07/19 Procedure(s): CT angio chest Accession Number(s): [id number] cc: SALINA WAGNER MD CTA CHEST WITH IV CONTRAST INDICATION / CLINICAL INFORMATION: MAIN: chest pain, pleurisy TECH NOTES: PT C/O CP, SOB, AND LEFT SIDE BACK PAIN. HX: KIDNEY DISEASE X LAST YR. 100 CC OMNI 350. TECHNIQUE: Axial CT images were obtained through the chest after injection of 100 CC OMNI 350 milligrams percent. IV contrast. 3 plane MIP and/or 3D reconstructions were produced. All CT scans at this location are performed using CT dose reduction for ALARA by means of automated exposure control. COMPARISON: None FINDINGS: PULMONARY ARTERIES: No pulmonary emboli. THORACIC AORTA: No significant abnormality. HEART: No significant abnormality. CORONARY ARTERIES: No significant calcification. PLEURA: No pleural effusion. No pneumothorax. LYMPH NODES: No significant adenopathy. LUNGS: No acute air space or interstitial disease. ADDITIONAL FINDINGS: None. UPPER ABDOMEN: No acute findings. SKELETAL STRUCTURES: No significant osseous abnormality. IMPRESSION: 1. No CT evidence for pulmonary embolism. 2. No acute findings. Signer Name: Talha Tubbs MD Signed: 02/07/2019 11:46 AM Workstation Name: [id number] Transcribed By: WG Dictated By: Talha Tubbs MD Electronically Authe nticated By: Talha Tubbs MD Signed Date/Time: 02/07/19 1146 DD/ 1143 TD/TT: [facility] [address] [place] [address] Cat Scan Report Signed Patient: HEATHER LEVINE MR# : [id number] : 1985 Acct:[id number] Age/Sex: 33 / M ADM Date: 02/07/19 Loc: ED Attending Dr: Ordering Physician: SALINA WAGNER MD Date of Service: 02/07/19 Procedure(s): CT abdomen pelvis w con Accession Number(s): [id number] cc: SALINA WAGNER MD CT ABDOMEN AND PELVIS WITH CONTRAST INDICATION / CLINICAL INFORMATION: MAIN: bilateral flank pain TECH NOTES: PT C/O CP, SOB, AND LEFT SIDE BACK PAIN. HX: KIDNEY DISEASE X LAST YR. 100 CC OMNI 350. TECHNIQUE: Axial CT images were obtained through the abdomen and pelvis after 100 CC OMNI 350. IV contrast. All CT scans at this location are performed using CT dose reduction for ALARA by means of automated exposure control. COMPARISON: None available. FINDINGS: LOWER CHEST: No significant abnormality. LIVER: No significant abnormality. GALLBLADDER: No significant abnormality. BILE DUCTS: No significant abnormality. PANCREAS: No significant abnormality. SPLEEN: No significant abnormality. ADRENALS: No significant abnormality. RIGHT KIDNEY and URETER: No significant abnormality. LEFT KIDNEY and URETER: No significant abnormality. STOMACH and SMALL BOWEL: No significant abnormality. COLON: No significant abnormality. APPENDIX: Not definitely identified PERITONEUM: No free fluid. No free air. No fluid collection. LYMPH NODES: No significant adenopathy. AORTA and ARTERIES: No significant abnormality. IVC and VEINS: No significant abnormality. URINARY BLADDER: No significant abnormality. REPRODUCTIVE ORGANS: No significant abnormality. ADDITIONAL FINDINGS: None. SKELETAL SYSTEM: No significant abnormality. IMPRESSION: 1. No significant abnormality. Signer Name: Talha Tubbs MD Signed: 02/07/2019 11:49 AM Workstation Name: [id number] Transcribed By: TERA Dictated By: Talha Tubbs MD Electronically Authenticated By: Talha Tubbs MD Signed Date/Time: 02/07/19 1149 DD/ 1147 TD/TT: - Differential Diagnosis ACS, PE, aortic dissection, pyelonephritis, Critical care attestation.: If time is entered above; I have spent that time in minutes in the direct care of this critically ill patient, excluding procedure time. ED Disposition Clinical Impression: Chest pain Disposition: DC-01 TO HOME OR SELFCARE Is pt being admited?: Yes Does the pt Need Aspirin: Yes Condition: Fair Instructions: Chest Pain (ED) Referrals: CARTER KLEIN MD [Primary Care Provider] - 3-5 Days Time of Disposition: 12:12 (hospitalist paged (Dr Manley))
[2019-02-07 11:31] LABS: Bilirubin,Urine NEG (Negative); Blood,Urine NEG (Negative); Color,Urine Yellow (Yellow); Protein,Urine <15 mg/dL mg/dL (Negative); Urobilinogen,Urine < 2.0 mg/dL (<2.0)
--- NOTE | 2019-02-07 11:51 | Cat Scan Report ---
CTA CHEST WITH IV CONTRAST INDICATION / CLINICAL INFORMATION: MAIN: chest pain, pleurisy TECH NOTES: PT C/O CP, SOB, AND LEFT SIDE BACK PAIN. HX: KIDNEY DISEASE X LAST YR. 100 CC OMNI 350. TECHNIQUE: Axial CT images were obtained through the chest after injection of 100 CC OMNI 350 milligrams percent . IV contrast. 3 plane MIP and/or 3D reconstructions were produced. All CT scans at this location are performed using CT dose reduction for ALARA by means of automated exposure control. COMPARISON: None FINDINGS: PULMONARY ARTERIES: No pulmonary emboli. THORACIC AORTA: No significant abnormality. HEART: No significant abnormality. CORONARY ARTERIES: No significant calcification. PLEURA: No pleural effusion. No pneumothorax. LYMPH NODES: No significant adenopathy. LUNGS: No acute air space or interstitial disease. ADDITIONAL FINDINGS: None. UPPER ABDOMEN: No acute findings. SKELETAL STRUCTURES: No significant osseous abnormality. IMPRESSION: 1. No CT evidence for pulmonary embolism. 2. No acute findings. Signer Name: Talha Tubbs MD Signed: 02/07/2019 11:46 AM Workstation Name: [id number]
--- NOTE | 2019-02-07 11:54 | Cat Scan Report ---
CT ABDOMEN AND PELVIS WITH CONTRAST INDICATION / CLINICAL INFORMATION: MAIN: bilateral flank pain TECH NOTES: PT C/O CP, SOB, AND LEFT SIDE BACK PAIN. HX: KIDNEY DISEASE X LAST YR. 100 CC OMNI 350. TECHNIQUE: Axial CT images were obtained through the abdomen and pelvis after 100 CC OMNI 350. IV contrast. All CT scans at this location are performed using CT dose reduction for ALARA by means of automated expo sure control. COMPARISON: None available. FINDINGS: LOWER CHEST: No significant abnormality. LIVER: No significant abnormality. GALLBLADDER: No significant abnormality. BILE DUCTS: No significant abnormality. PANCREAS: No significant abnormality. SPLEEN: No significant abnormality. ADRENALS: No significant abnormality. RIGHT KIDNEY and URETER: No significant abnormality. LEFT KIDNEY and URETER: No significant abnormality. STOMACH and SMALL BOWEL: No significant abnormality. COLON: No significant abnormality. APPENDIX: Not definitely identified PERITONEUM: No free fluid. No free air. No fluid collection. LYMPH NODES: No significant adenopathy. AORTA and ARTERIES: No significant abnormality. IVC and VEINS: No significant abnormality. URINARY BLADDER: No significant abnormality. REPRODUCTIVE ORGANS: No significant abnormality. ADDITIONAL FINDINGS: None. SKELETAL SYSTEM: No significant abnormality. IMPRESSION: 1. No significant abnormality. Signer Name: Talha Tubbs MD Signed: 02/07/2019 11:49 AM Workstation Name: [id number]
[2019-02-07] MEDS ORDERED: NITRO-BID 2% TP ONE (12:21)
--- NOTE | 2019-02-07 21:17 | History and Physical Report ---
History of Present Illness Date of examination: 02/07/19 Date of admission: 02/07/19 12:14 Chief complaint: Left-sided chest pain for 1 week. History of present illness: 33-year-old -[place] male with history of hypertension and renal insufficiency not on any medications comes in for left-sided chest pain.. Chest pain for 1 week. Chest pain is retrosternal and dull in character. No diaphoresis no palpitations no shortness of breath. No recent travel. Patient was diagnosed with hypertension but patient is not taking any medications. Patient also says that he has renal insufficiency. Not following with any other physicians. Workup done in the emergency room did not show any renal insufficiency. Patient also says that he has congestive heart failure but is not on any medications. Past Medical History Previous Medical History?: Yes Congestive Heart Failure: Yes Renal Disease: Yes (NOT ON DIALYSIS) Psychiatric Treatment: Yes Additional medical history: Questionable history of hep C,right knee/leg pain ,anxiety disorder pt. denies any history, intellectual disability Surgical History Past Surgical History?: No Additional Surgical History: patient denies any surgeries Family History Family history: no significant Social History Smoking Status: Never Smoker Substance Use Type: None (denies illicit drug use) - Medications Home Medications: Home Medications Medication Instructions Recorded Confirmed Last Taken Type No Known Home Medications [No 02/07/19 02/07/19 Unknown History Reported Home Medications] Review of Systems ROS: Stated complaint: CHEST PAIN/LFT SIDE HIP PAIN Other details as noted in HPI Constitutional: diaphoresis. denies: fever Eyes: denies: eye pain ENT: denies: throat pain Respiratory: shortness of breath Cardiovascular: chest pain Endocrine: no symptoms reported Gastrointestinal: nausea. denies: abdominal pain, vomiting Genitourinary: denies: dysuria Musculoskeletal: back pain Neurological: denies: headache 14 point review of systems done and otherwise negative. Medications and Allergies Allergies Allergy/AdvReac Type Severity Reaction Status Date / Time No Known Allergies Allergy Verified 01/18/19 08:10 Home Medications Medication Instructions Recorded Confirmed Last Taken Type No Known Home Medications [No 02/07/19 02/07/19 Unknown History Reported Home Medications] Exam - Constitutional Vitals: Temp Pulse Resp BP Pulse Ox 98.4 F 64 18 115/68 98 02/07/19 19:13 02/07/19 20:36 02/07/19 19:13 02/07/19 19:13 02/07/19 19:13 General appearance: Present: no acute distress, well-nourished - EENT Eyes: Present: PERRL ENT: hearing intact, clear oral mucosa - Neck Neck: Present: supple, normal ROM - Respiratory Respiratory effort: normal Respiratory: bilateral: CTA - Cardiovascular Heart rate: 70 Rhythm: regular Heart Sounds: Present: S1 & S2. Absent: rub, click - Extremities Extremities: no ischemia, pulses intact, pulses symmetrical, No edema Peripheral Pulses: within normal limits - Abdominal General gastrointestinal: Present: soft, non-tender, non-distended, normal bowel sounds Male genitourinary: Present: normal - Integumentary Integumentary: Present: clear, warm, dry - Musculoskeletal Musculoskeletal: gait normal, strength equal bilaterally - Psychiatric Psychiatric: appropriate mood/affect, intact judgment & insight - Neurologic Neurologic: CNII-XII intact, moves all extremities Results - Labs CBC & Chem 7: 02/07/19 08:52 02/07/19 08:52 Labs: Laboratory Last Values WBC 6.4 K/mm3 (4.5-11.0) 02/07/19 08:52 RBC 5.29 M/mm3 (3.65-5.03) H 02/07/19 08:52 Hgb 15.8 gm/dl (11.8-15.2) H 02/07/19 08:52 Hct 46.6 % (35.5-45.6) H 02/07/19 08:52 MCV 88 fl (84-94) 02/07/19 08:52 MCH 30 pg (28-32) 02/07/19 08:52 MCHC 34 % (32-34) 02/07/19 08:52 RDW 13.6 % (13.2-15.2) 02/07/19 08:52 Plt Count 161 K/mm3 (140-440) 02/07/19 08:52 Lymph % (Auto) 37.6 % (13.4-35.0) H 02/07/19 08:52 Lucas % (Auto) 8.1 % (0.0-7.3) H 02/07/19 08:52 Eos % (Auto) 3.8 % (0.0-4.3) 02/07/19 08:52 Baso % (Auto) 0.4 % (0.0-1.8) 02/07/19 08:52 Lymph # 2.4 K/mm3 (1.2-5.4) 02/07/19 08:52 Lucas # 0.5 K/mm3 (0.0-0.8) 02/07/19 08:52 Eos # 0.2 K/mm3 (0.0-0.4) 02/07/19 08:52 Baso # 0.0 K/mm3 (0.0-0.1) 02/07/19 08:52 Seg Neutrophils % 50.1 % (40.0-70.0) 02/07/19 08:52 Seg Neutrophils # 3.2 K/mm3 (1.8-7.7) 02/07/19 08:52 Sodium 142 mmol/L (137-145) 02/07/19 08:52 Potassium 4.6 mmol/L (3.6-5.0) 02/07/19 08:52 Chloride 103.5 mmol/L (98-107) 02/07/19 08:52 Carbon Dioxide 32 mmol/L (22-30) H 02/07/19 08:52 11 mmol/L 02/07/19 08:52 BUN 8 mg/dL (9-20) L 02/07/19 08:52 1.0 mg/dL (0.8-1.5) 02/07/19 08:52 Estimated GFR > 60 ml/min 02/07/19 08:52 8 % 02/07/19 08:52 Glucose 88 mg/dL (75-100) 02/07/19 08:52 Calcium 9.5 mg/dL (8.4-10.2) 02/07/19 08:52 < 0.010 ng/mL (0.00-0.029) 02/07/19 15:14 Yellow (Yellow) 02/07/19 10:25 Clear (Clear) 02/07/19 10:25 6.0 (5.0-7.0) 02/07/19 10:25 Ur Specific [place] 1.014 (1.003-1.030) 02/07/19 10:25 <15 mg/dl mg/dL (Negative) 02/07/19 10:25 Neg mg/dL (Negative) 02/07/19 10:25 Neg mg/dL (Negative) 02/07/19 10:25 Neg (Negative) 02/07/19 10:25 Neg (Negative) 02/07/19 10:25 Neg (Negative) 02/07/19 10:25 < 2.0 mg/dL (<2.0) 02/07/19 10:25 Ur Leukocyte Esterase Neg (Negative) 02/07/19 10:25 4.0 /HPF (0.0-6.0) 02/07/19 10:25 2.0 /HPF (0.0-6.0) 02/07/19 10:25 Short CBC 02/07/19 Range/Units 08:52 WBC 6.4 (4.5-11.0) K/mm3 Hgb 15.8 H (11.8-15.2) gm/dl Hct 46.6 H (35.5-45.6) % Plt Count 161 (140-440) K/mm3 BMP 02/07/19 08:52 Sodium 142 Potassium 4.6 Chloride 103.5 Carbon Dioxide 32 H BUN 8 L Creatinine 1.0 Glucose 88 Calcium 9.5 Cardiac Enzymes 02/07/19 02/07/19 02/07/19 Range/Units 08:52 11:54 15:14 Troponin T < 0.010 < 0.010 < 0.010 (0.00-0.029) ng/mL Urine 02/07/19 Range/Units 10:25 Urine Color Yellow (Yellow) Urine pH 6.0 (5.0-7.0) Ur Specific [place] 1.014 (1.003-1.030) Urine Protein <15 mg/dl (Negative) mg/dL Urine Glucose (UA) Neg (Negative) mg/dL - Imaging and Cardiology EKG: report reviewed (normal sinus rhythm heart rate of 61/m nonspecific ST-T wave changes) Imaging and Cardiology: Chest CTA No pulmonary embolism CT abdomen No acute findings Chest x-ray No acute findings Assessment and Plan Advance Directives: Yes (full code) VTE prophylaxis?: Chemical Plan of care discussed with patient/family: Yes - Patient Problems (1) Chest pain Current Visit: Yes Status: Acute Qualifiers: Chest pain type: unspecified Qualified Code(s): R07.9 - Chest pain, unspecified Plan to address problem: Chest pain rule out CT protocol Serial troponins Lexiscan in the morning Costochondritis and GERD in the differential diagnosis (2) CHF (congestive heart failure) Current Visit: Yes Status: Chronic Qualifiers: Heart failure type: combined systolic and diastolic Heart failure chronicity: unspecified Qualified Code(s): I50.40 - Unspecified combined systolic (congestive) and diastolic (congestive) heart failure Plan to address problem: Patient says that he has a congestive heart failure Patient is very unreliable historian He also claims that he has renal insufficiency which is not evident on the labs We'll get echocardiogram for ejection fraction and valve function Patient to be counseled about his not having renal insufficiency or congestive heart failure if proven by echocardiogram (3) DVT prophylaxis Current Visit: Yes Status: Acute Plan to address problem: Lovenox 40 mg subcutaneous daily and GI prophylaxis
[2019-02-07] MEDS ORDERED: TYLENOL PO PRN ×2 (21:24)
[2019-02-07] MEDS ORDERED: ZOFRAN IV PRN (21:24)
[2019-02-07] MEDS ORDERED: PERCOCET 5/325 PO PRN (21:24)
[2019-02-07] MEDS ORDERED: SODIUM CHLORIDE FLUSH SYRINGE 10 ML IV PRN (21:24)
[2019-02-07] MEDS ORDERED: NITROSTAT SL PRN (21:24)
[2019-02-07] MEDS ORDERED: DILAUDID IV PRN (21:24)
[2019-02-07] MEDS: PEPCID IV SCH (21:51)
[2019-02-07] MEDS: MORPHINE IV PRN (21:51)
[2019-02-07] MEDS: SODIUM CHLORIDE FLUSH SYRINGE 10 ML IV SCH (21:52)
[2019-02-08 06:17] LABS: Basophils % (Auto) 0.3 % (0.0-1.8); Eosinophils # (Auto) 0.2 K/mm3 (0.0-0.4); Eosinophils % (Auto) 3.6 % (0.0-4.3); Hematocrit 45.2 % (35.5-45.6); Hemoglobin 15.2 gm/dl (11.8-15.2); Lymphocytes # (Auto) 2.4 K/mm3 (1.2-5.4); Lymphocytes % (Auto) 35.1 % (13.4-35.0); Mean Corpuscular HGB Conc 34 % (32-34); Mean Corpuscular Volume 88 fl (84-94); Monocytes # (Auto) 0.7 K/mm3 (0.0-0.8); Monocytes % (Auto) 9.8 % (0.0-7.3); Platelet Count 152 K/mm3 (140-440); Red Blood Count 5.13 M/mm3 (3.65-5.03); Red Cell Distribution Width 13.7 % (13.2-15.2)
[2019-02-08 06:34] LABS: Alanine Aminotransferase 27 units/L (7-56); Albumin 3.7 g/dL (3.9-5); BUN/Creatinine Ratio 9; Blood Urea Nitrogen 10 mg/dL (9-20); Calcium 9.1 mg/dL (8.4-10.2); Hemolysis Index 26
--- NOTE | 2019-02-08 07:37 | Discharge Summary ---
Providers - Providers Date of Admission: 02/07/19 12:14 Date of discharge: 02/08/19 Attending physician: YOEL URIBE [facility] Condition: Stable Hospital course: Patient is a 33 yo man with a history of hypertension who presented with chest pains. * Chest CTA: No pulmonary embolism * CT abdomen: No acute findings * Chest x-ray: No acute findings (1) Chest pain Current Visit: Yes Status: Acute Qualifiers: Chest pain type: unspecified Qualified Code(s): R07.9 - Chest pain, unspecified Plan to address problem: Chest pain rule out [place] protocol Serial troponins Lexiscan in the morning Costochondritis most likely (2) CHF (congestive heart failure) Current Visit: Yes Status: Chronic Qualifiers: Heart failure type: combined systolic and diastolic Heart failure chronicity: unspecified Qualified Code(s): I50.40 - Unspecified combined systolic (congestive) and diastolic (congestive) heart failure Plan to address problem: Patient says that he has a congestive heart failure Patient is very unreliable historian He also claims that he has renal insufficiency which is not evident on the labs Encourage outpatient echocardiogram for ejection fraction and valve function Patient to be counseled about his not having renal insufficiency or congestive heart failure if proven by echocardiogram (3) DVT prophylaxis Current Visit: Yes Status: Acute Plan to address problem: Lovenox 40 mg subcutaneous daily and GI prophylaxis Disposition: DC-01 TO HOME OR SELFCARE Time spent for discharge: 35 min Core Measure Documentation - Palliative Care Palliative Care/ Comfort Measures: Not Applicable - Core Measures Any of the following diagnoses?: none - VTE Discharge Requirements Deep Vein Thrombosis/Pulmonary Embolism Present on Admission: No Has pt received <5 days of overlap therapy or INR<2.0: No Anticoagulant overlap therapy prescribed at discharge: No Contraindication No Overlap Therapy order at DC: Not Indicated Exam - Physical Exam Narrative exam: Gen: WDWN, NAD, Awake, Alert, Orientated HEENT: NCAT, EOMI, PERRL, OP Clear Neck: supple, no adenopathy, no thyromegaly, no JVD CVS/Heart: RRR, normal S1S2, pulses present bilaterally Chest/Lungs: CTA B, Symmetrical chest expansion, good air entry bilaterally GI/Abdomen: soft, NTND, good bowel sounds, no guarding or rebound /Bladder: no suprapubic tenderness, no CVA or paraspinal tenderness Extermity/Skin: no c/c/e, no obvious rash MSK: FROM x 4 Neuro: CN 2-12 grossly intact, no new focal deficits Psych: calm - Constitutional Vitals: Temp Pulse Resp BP Pulse Ox 97.5 F L 73 16 118/64 97 02/08/19 03:33 02/08/19 03:33 02/08/19 03:33 02/08/19 03:33 02/08/19 03:33 Plan Activity: other (no strenous activity unless cleared by PCP) Diet: low salt Follow up with: CARTER KLEIN MD [Primary Care Provider] - 3-5 Days Prescriptions: oxyCODONE /ACETAMINOPHEN [Percocet 5/325 mg] 1 tab PO Q6H PRN #15 tablet PRN Reason: Pain , Severe (7-10)
[2019-02-08] MEDS: MORPHINE IV PRN (08:57)
[2019-02-08] MEDS: PEPCID IV SCH (09:48)
[2019-02-08] MEDS: SODIUM CHLORIDE FLUSH SYRINGE 10 ML IV SCH (09:48)
[2019-02-08] MEDS ORDERED: LEXISCAN IV ONE ×2 (11:36→11:38)
--- NOTE | 2019-02-08 13:49 | Event Note ---
Date: 02/08/19 lexiscan stress: lvef 50%. no ischemia or necrosis
[2019-02-08 16:07] VITALS: BP 127/69
--- NOTE | 2019-02-08 23:11 | Treadmill Report ---
NUCLEAR CARDIAC IMAGING REPORT INDICATION FOR PROCEDURE: Chest pain. DESCRIPTION OF PROCEDURE: Informed consent was obtained. Vasodilator stress was achieved with the intravenous administration of 0.4 mg of Lexiscan per protocol. Nuclear cardiac imaging was performed following the intravenous administration of technetium-99m Myoview per protocol. Gated SPECT imaging demonstrates a left ventricular ejection fraction post-stress of 50% with normal wall motion. Myocardial perfusion imaging demonstrates no significant cavity change between stress and rest. No significant stress induced perfusion defects were seen. Nuclear cardiac imaging demonstrates grossly normal post-stress left ventricular systolic function with no significant evidence of myocardial ischemia or necrosis. [facility]# [id number] MARYURI/NTS
== END 2019-02-08 18:47 | disposition home or self-care (01) ==
LOC: ED 08:25 → 4A 12:14
PROVIDERS: ADMIT Internal Medicine; ATTEND Internal Medicine
DX: R07.89 Other chest pain (principal); I11.0 Hypertensive heart disease with heart failure; I50.40 Unspecified combined systolic (congestive) and diastolic (congestive) heart failure
CPT/HCPCS: 36415; 71046; 71275; 74177; 78452; 80048; 80053; 81001; 84484; 85025; 87116; 93005; 93010; 93017; 93306; 96374; 96375; 96376; 99284; A9502; G0378; J2270; J2405; J2785; J3010; Q9967

== ENCOUNTER 2019-04-02 18:55 | Emergency (ER) | payer OTHER ==
[2019-04-02] MEDS ORDERED: ASPIRIN 325 MG TAB PO ONE (19:28)
--- NOTE | 2019-04-02 20:13 | XRay Report ---
CHEST 1 VIEW INDICATION / CLINICAL INFORMATION: MAIN: Chest Pain Pt. presents with c/o right sided chest pain, dizziness and SOB since this morning.. COMPARISON: 02/07/2019 chest radiograph FINDINGS: The lungs are well-inflated and clear. No pleural fluid or pneumothorax. Normal cardiomediastinal mildred houette. No acute bony abnormality. IMPRESSION: Normal chest. Signer Name: Liang Bose MD Signed: 04/02/2019 8:09 PM Workstation Name: [id number]
[2019-04-02 20:28] LABS: Basophils % (Auto) 0.3 % (0.0-1.8); Eosinophils # (Auto) 0.2 K/mm3 (0.0-0.4); Eosinophils % (Auto) 2.7 % (0.0-4.3); Hematocrit 46.4 % (35.5-45.6); Hemoglobin 15.7 gm/dl (11.8-15.2); Lymphocytes # (Auto) 2.4 K/mm3 (1.2-5.4); Lymphocytes % (Auto) 35.2 % (13.4-35.0); Mean Corpuscular HGB Conc 34 % (32-34); Mean Corpuscular Volume 87 fl (84-94); Monocytes # (Auto) 0.7 K/mm3 (0.0-0.8); Monocytes % (Auto) 9.7 % (0.0-7.3); Platelet Count 165 K/mm3 (140-440); Red Blood Count 5.33 M/mm3 (3.65-5.03); Red Cell Distribution Width 13.5 % (13.2-15.2)
[2019-04-02 20:51] LABS: BUN/Creatinine Ratio 13; Blood Urea Nitrogen 13 mg/dL (9-20); Calcium 9.2 mg/dL (8.4-10.2); Hemolysis Index 10
[2019-04-02] MEDS ORDERED: ONDANSETRON 4 MG/2 ML INJ IV ONE ×2 (20:57→23:27)
[2019-04-02] MEDS ORDERED: SODIUM CHLORIDE 0.9% 1000 ML 1,000 ML IV ONE (20:57)
[2019-04-02] MEDS ORDERED: KETOROLAC 30 MG/1 ML INJ IV ONE (20:59)
--- NOTE | 2019-04-02 21:43 | XRay Report ---
ABDOMEN SUPINE INDICATION / CLINICAL INFORMATION: abd pain. COMPARISON: None available. FINDINGS: Bowel gas pattern is unremarkable, not indicative of obstruction. No obvious abnormal mass or calcifi cation. Signer Name: Sonny Key MD Signed: 04/02/2019 9:39 PM Workstation Name: [id number]
[2019-04-02] MEDS ORDERED: MORPHINE 4 MG/1 ML INJ IV ONE (23:27)
--- NOTE | 2019-04-02 23:33 | Emergency Department Report ---
ED Chest Pain HPI - General Chief Complaint: Chest Pain Stated Complaint: CHEST PAIN/DIZZY/RT SIDE PAIN Time Seen by Provider: 04/02/19 20:55 Source: patient Mode of arrival: Ambulatory Limitations: No Limitations - History of Present Illness Initial Comments: Mr. LEVINE is a 33-year-old -[place] male history of hypertension asthma CHF COPD diabetes type 2 hypertension chronic renal disease and depression who presents for right lateral chest wall pain movement and inspiration patient denies fevers or chills states he wheezes a stone endorses some shortness of breath and dizziness that started yesterday patient advises adherence with all medications. there are no relieving factors. MD Complaint: chest pain, other (right flank pain ) Onset/Timin Severity scale (0 -10): 5 Quality: aching, sharp Consistency: constant Improves With: nothing Worsens With: inspiration, movement re: denies: nausea, vomting, diaphoresis, dyspnea Other Symptoms: denies: cough, fever, rash, acid taste in mouth, leg swelling, palpitations, burping Treatments Prior to Arrival: none Aspirin use within the Past 7 Days: (0) No - Related Data Previous Rx's Medication Instructions Recorded Last Taken Type oxyCODONE /ACETAMINOPHEN [Percocet 1 tab PO Q6H PRN #15 tablet 02/08/19 Unknown Rx 5/325 mg] Naproxen 500 mg PO UNK PRN #30 tablet 04/03/19 Unknown Rx Allergies Allergy/AdvReac Type Severity Reaction Status Date / Time No Known Allergies Allergy Verified 01/18/19 08:10 Heart Score - HEART Score History: Slightly suspicious EKG: Normal Age: < 45 Risk factors: > 3 risk factors or hx of atherosclerotic disease Troponin: < normal limit HEART Score: 2 ED Review of Systems ROS: Stated complaint: CHEST PAIN/DIZZY/RT SIDE PAIN Other details as noted in HPI Constitutional: malaise. denies: chills, fever Eyes: denies: eye pain, eye discharge, vision change ENT: denies: ear pain, throat pain Respiratory: shortness of breath Cardiovascular: chest pain Endocrine: no symptoms reported Gastrointestinal: abdominal pain (right flank ). denies: nausea, vomiting, diarrhea, constipation, melena Genitourinary: denies: urgency, dysuria, frequency, hematuria Musculoskeletal: denies: back pain Skin: denies: rash, lesions Neurological: headache. denies: weakness, numbness, paresthesias, confusion, vertigo Psychiatric: anxiety. denies: depression Hematological/Lymphatic: denies: easy bleeding, easy bruising ED Past Medical Hx - Past Medical History Previous Medical History?: Yes Hx Hypertension: Yes Hx Congestive Heart Failure: Yes Hx Diabetes: No Hx Renal Disease: Yes Hx Psychiatric Treatment: Yes Hx Asthma: No Hx COPD: No Additional medical history: Questionable history of hep C,right knee/leg pain,anxiety disorder pt. denies any history, intellectual disability - Surgical History Past Surgical History?: No Additional Surgical History: patient denies any surgeries - Social History Smoking Status: Never Smoker Substance Use Type: None - Medications Home Medications: Home Medications Medication Instructions Recorded Confirmed Last Taken Type oxyCODONE /ACETAMINOPHEN [Percocet 1 tab PO Q6H PRN #15 tablet 02/08/19 Unknown Rx 5/325 mg] Naproxen 500 mg PO UNK PRN #30 tablet 04/03/19 Unknown Rx ED Physical Exam - General Limitations: No Limitations General appearance: alert, in no apparent distress - Head Head exam: Present: atraumatic, normocephalic - Eye Eye exam: Present: normal appearance, PERRL, EOMI Pupils: Present: normal accommodation - ENT ENT exam: Present: mucous membranes moist - Neck Neck exam: Present: normal inspection, full ROM. Absent: tenderness, lymphadenopathy - Respiratory Respiratory exam: Present: normal lung sounds bilaterally, chest wall tenderness (right lateral ). Absent: respiratory distress, wheezes, rales, rhonchi, stridor, prolonged expiratory - Cardiovascular Cardiovascular Exam: Present: regular rate, normal rhythm, normal heart sounds. Absent: systolic murmur, diastolic murmur, rubs, gallop - GI/Abdominal GI/Abdominal exam: Present: soft, tenderness (right flank ), normal bowel sounds. Absent: distended, guarding, rebound, rigid, bruit, hernia - Rectal Rectal exam: Present: deferred - Extremities Exam Extremities exam: Present: normal inspection, full ROM, normal capillary refill. Absent: tenderness, pedal edema, joint swelling, calf tenderness - Back Exam Back exam: Present: normal inspection, full ROM, tenderness, CVA tenderness (R). Absent: CVA tenderness (L), muscle spasm, paraspinal tenderness, rash noted - Neurological Exam Neurological exam: Present: alert, oriented X3, CN II-XII intact, normal gait, reflexes normal - Psychiatric Psychiatric exam: Present: normal affect - Skin Skin exam: Present: warm, dry, intact, normal color. Absent: rash ED Course Vital Signs 04/02/19 20:38 Pulse Rate 62 Respiratory 14 Rate Blood Pressure 134/86 [Left] O2 Sat by Pulse 100 Oximetry SANTOS score - Santos Score Age > 65: (0) No Aspirin use within the Past 7 Days: (0) No 3 or more CAD Risk Factors: (1) Yes 2 or more Angina events in past 24 hrs: (0) No Known CAD with more than 50% Stenosis: (0) No Elevated Cardiac Markers: (0) No ST Deviation Greater than 0.5mm: (0) No SANTOS Score: 1 ED Medical Decision Making - Lab Data Result diagrams: 04/02/19 20:01 04/02/19 20:01 - EKG Data EKG shows normal: sinus rhythm, axis, intervals, QRS complexes, ST-T waves Rate: normal - EKG Data When compared to previous EKG there are: no significant change Interpretation: normal EKG (EKG interpreted by ED Attending, ) - Radiology Data Radiology results: report reviewed, image reviewed normal CXR KUB: normal bowel gas pattern CT abd pelvis: no hydronephrosis no renal calculi - Medical Decision Making Chest x-ray is normal no infiltrates no opacities, heart score is 1 for history , SANTOS score is :0 KUB nonobstructive gas pattern , however right flank tenderness persist patient states 7/10 not improved with Toradol which treat with morphine and Zofran will get CT abdomen and pelvis to rule out obstructing stone labs noted normal , ua results pending: pt advises that he cannot wait for UA and he feels much better, pain is now rated as 1/10 there is no sob lung sounds are clear bilat no wheezing cough , no dizziness no lightheadedness Critical care attestation.: If time is entered above; I have spent that time in minutes in the direct care of this critically ill patient, excluding procedure time. ED Disposition Clinical Impression: Chest wall pain Chest pain Qualifiers: Chest pain type: chest pain on breathing Qualified Code(s): R07.1 - Chest pain on breathing; R07.81 - Pleurodynia Disposition: DC-01 TO HOME OR SELFCARE Is pt being admited?: No Does the pt Need Aspirin: No Condition: Stable Instructions: Chest Pain (ED), Flank Pain (ED) Prescriptions: Naproxen 500 mg PO UNK PRN #30 tablet PRN Reason: pain Referrals: PRIMARY CARE,MD [Primary Care Provider] - 3-5 Days [facility] [Outside] - 3-5 Days Forms: Work/School Release Form(ED) Time of Disposition: 01:36
--- NOTE | 2019-04-03 00:55 | Cat Scan Report ---
CT ABDOMEN AND PELVIS WITHOUT CONTRAST INDICATION / CLINICAL INFORMATION: abd flank pain hx renal stones. TECHNIQUE: Axial CT images were obtained through the abdomen and pelvis without IV contrast. All CT scans at [facility] location are performed using CT dose reduction for ALARA by means of automated exposure control. COMPARISON: CT abdomen pelvis 02/07/2019 FINDINGS: LOWER CHEST: No significant abnormality. LIVER: No significant abnormality. GALLBLADDER: No significant abnormality. BILE DUCTS: No significant abnormality. PANCREAS: No significant abnormality. SPLEEN: No significant abnormality. ADRENALS: No significant abnormality. RIGHT KIDNEY and URETER: No significant abnormality. LEFT KIDNEY and URETER: No significant abnormality. STOMACH and SMALL BOWEL: Mild nonspecific haziness of the central mesentery with a few prominent but not technically enlarged mesenteric lymph nodes. COLON: No significant abnormality. APPENDIX: No significant abnormality. PERITONEUM: No free fluid. No free air. No fluid collection. LYMPH NODES: No significant adenopathy. AORTA and ARTERIES: No significant abnormality. IVC and VEINS: No significant abnormality. URINARY BLADDER: No significant abnormality. REPRODUCTIVE ORGANS: No significant abnormality. ADDITIONAL FINDINGS: None. SKELETAL SYSTEM: No significant abnormality. IMPRESSION: 1. No hydronephrosis or nephrolithiasis. 2. Minimal stranding of the central mesentery with a few prominent but not technically enlarged mesen teric lymph nodes, nonspecific but can be seen in the setting of sclerosing mesenteritis. Signer Name: Sosa Cervantes MD Signed: 04/03/2019 12:51 AM Workstation Name: [id number]
[2019-04-03 01:59] VITALS: BP 126/86
== END 2019-04-03 01:59 | disposition home or self-care (01) ==
LOC: ED 18:55
DX: R07.89 Other chest pain (principal); I11.0 Hypertensive heart disease with heart failure; I50.9 Heart failure, unspecified; F79 Unspecified intellectual disabilities
CPT/HCPCS: 36415; 71045; 74018; 74176; 80048; 84484; 85025; 93005; 93010; 96374; 96375; 99285; J1885; J2405; J7030

== ENCOUNTER 2019-04-26 20:29 | Emergency (ER) | payer OTHER ==
--- NOTE | 2019-04-26 20:56 | Emergency Department Report ---
Chief Complaint: Dyspnea/Respdistress Stated Complaint: HEADACHE, OUT OF BREATH - HPI History of Present Illness: 33yo BM states that he has CP and difficulty breathing x 2 days. - Exam Vital Signs: Vital Signs 04/26/19 20:33 Temperature 99.6 F Pulse Rate 79 Respiratory 18 Rate Blood Pressure 186/114 O2 Sat by Pulse 97 Oximetry MSE screening note: Focused history and physical exam performed. Due to findings the following was ordered: ED Disposition for MSE Condition: Stable
[2019-04-26 21:36] LABS: Basophils % (Auto) 0.4 % (0.0-1.8); Eosinophils % (Auto) 0.5 % (0.0-4.3); Hematocrit 51.8 % (35.5-45.6); Hemoglobin 17.5 gm/dl (11.8-15.2); Lymphocytes # (Auto) 2.2 K/mm3 (1.2-5.4); Lymphocytes % (Auto) 23.6 % (13.4-35.0); Mean Corpuscular HGB Conc 34 % (32-34); Mean Corpuscular Volume 88 fl (84-94); Monocytes # (Auto) 0.9 K/mm3 (0.0-0.8); Platelet Count 169 K/mm3 (140-440)
--- NOTE | 2019-04-26 21:42 | XRay Report ---
CHEST 2 VIEWS, 04/26/2019 at 9:05 PM INDICATION: Chest pain COMPARISON: Chest radiograph, 04/02/2019 FINDINGS: Support devices: None Heart: The heart is normal in size. Lungs/pleura: There is no focal airspace disease or significant pleural effusion. Additional findings: No acute bony abnormality is identified. IMPRESSION: 1. No evidence of acute cardiopulmonary process. Signer Name: Nupur Lizama MD Signed: 04/26/2019 9:38 PM Workstation Name: [id number]
[2019-04-26 21:56] LABS: Alanine Aminotransferase 21 units/L (7-56); BUN/Creatinine Ratio 6; Blood Urea Nitrogen 6 mg/dL (9-20); Hemolysis Index 13
[2019-04-26] MEDS ORDERED: dexAMETHasone 20 MG/5 ML VIAL IM ONE (22:13)
[2019-04-26] MEDS ORDERED: BUTALB/ACETAMINOPHEN/CAFFEINE TAB PO ONE (22:13)
[2019-04-26] MEDS ORDERED: KETOROLAC 30 MG/1 ML INJ IM ONE (22:13)
[2019-04-26 23:06] VITALS: BP 155/93
--- NOTE | 2019-04-26 23:24 | Emergency Department Report ---
ED General Adult HPI - General Chief complaint: Dyspnea/Respdistress Stated complaint: HEADACHE, OUT OF BREATH Source: patient Mode of arrival: Ambulatory Limitations: No Limitations - History of Present Illness Initial comments: Patient is a 33-year-old -[place] male with a history of hypertension, CHF presents to the ED with complaint of acute onset persistent frontal sinus headache, nasal and sinus congestion, persistent chills and fever for the last 2 days intermittently. Patient denies dizziness, sore throat, abdominal pain, chest pain, change in vision, syncope, seizures, back pain, dysuria, urinary frequency and urgency, nausea and vomiting or diarrhea. MD Complaint: Nasal and sinus congestion, dry cough, headache -: Sudden, days(s) (2) Location: head, chest Radiation: non-radiation Severity scale (0 -10): 8 Quality: aching, sharp Consistency: constant Improves with: none Worsens with: none Associated Symptoms: denies other symptoms, chest pain, cough, headaches, malaise. denies: confusion, diaphoresis, fever/chills, rash, seizure, shortness of breath Treatments Prior to Arrival: none - Related Data Previous Rx's Medication Instructions Recorded Last Taken Type oxyCODONE /ACETAMINOPHEN [Percocet 1 tab PO Q6H PRN #15 tablet 02/08/19 Unknown Rx 5/325 mg] Naproxen 500 mg PO UNK PRN #30 tablet 04/03/19 Unknown Rx Acetaminophen [Tylenol] 500 mg PO Q6HR PRN #30 tablet 04/26/19 Unknown Rx Amoxicillin/Potassium Clav 1 each PO Q12H #20 tablet 04/26/19 Unknown Rx [Augmentin 875-125 Tablet] Butalb/Acetamin/Caff 50-325-40 1 tab PO Q6HR PRN #12 tab 04/26/19 Unknown Rx [Fioricet 50-325-40] Cetirizine HCl [Zyrtec 10mg tab] 10 mg PO DAILY #30 tablet 04/26/19 Unknown Rx amLODIPine 10 mg PO DAILY #30 tab 04/26/19 Unknown Rx Allergies Allergy/AdvReac Type Severity Reaction Status Date / Time No Known Allergies Allergy Verified 01/18/19 08:10 ED Review of Systems ROS: Stated complaint: HEADACHE, OUT OF BREATH Other details as noted in HPI Constitutional: denies: chills, fever Eyes: denies: eye pain, eye discharge, vision change ENT: congestion. denies: ear pain, throat pain Respiratory: cough. denies: shortness of breath, wheezing Cardiovascular: denies: chest pain, palpitations, dyspnea on exertion, edema, syncope, paroxysmal nocturnal dyspnea Endocrine: no symptoms reported. denies: excessive sweating, flushing, increased hunger, unexplained weight gain, unexplained weight loss Gastrointestinal: denies: abdominal pain, nausea, vomiting, diarrhea Genitourinary: denies: urgency, dysuria Musculoskeletal: denies: back pain, joint swelling, arthralgia Skin: denies: rash, lesions Neurological: headache. denies: weakness, paresthesias Psychiatric: denies: anxiety, depression Hematological/Lymphatic: denies: easy bleeding, easy bruising ED Past Medical Hx - Past Medical History Previous Medical History?: Yes Hx Hypertension: Yes Hx Congestive Heart Failure: Yes Hx Diabetes: No Hx Renal Disease: Yes Hx Psychiatric Treatment: Yes Hx Asthma: No Hx COPD: No Additional medical history: Questionable history of hep C,right knee/leg pain,anxiety disorder pt. denies any history, intellectual disability - Surgical History Past Surgical History?: Yes Additional Surgical History: patient denies any surgeries - Social History Smoking Status: Never Smoker Substance Use Type: None - Medications Home Medications: Home Medications Medication Instructions Recorded Confirmed Last Taken Type oxyCODONE /ACETAMINOPHEN [Percocet 1 tab PO Q6H PRN #15 tablet 02/08/19 Unknown Rx 5/325 mg] Naproxen 500 mg PO UNK PRN #30 tablet 04/03/19 Unknown Rx Acetaminophen [Tylenol] 500 mg PO Q6HR PRN #30 tablet 04/26/19 Unknown Rx Amoxicillin/Potassium Clav 1 each PO Q12H #20 tablet 04/26/19 Unknown Rx [Augmentin 875-125 Tablet] Butalb/Acetamin/Caff 50-325-40 1 tab PO Q6HR PRN #12 tab 04/26/19 Unknown Rx [Fioricet 50-325-40] Cetirizine HCl [Zyrtec 10mg tab] 10 mg PO DAILY #30 tablet 04/26/19 Unknown Rx amLODIPine 10 mg PO DAILY #30 tab 04/26/19 Unknown Rx ED Physical Exam - General Limitations: No Limitations General appearance: alert, in no apparent distress - Head Head exam: Present: atraumatic, normocephalic, normal inspection - Eye Eye exam: Present: normal appearance, PERRL, EOMI Pupils: Present: normal accommodation - ENT ENT exam: Present: normal orophraynx, mucous membranes moist, TM's normal bilaterally, normal external ear exam, other (Grossly congested nasal passages) - Neck Neck exam: Present: normal inspection, full ROM. Absent: lymphadenopathy - Respiratory Respiratory exam: Present: normal lung sounds bilaterally. Absent: respiratory distress, wheezes, rales, stridor, accessory muscle use, prolonged expiratory, other - Cardiovascular Cardiovascular Exam: Present: regular rate, normal rhythm, normal heart sounds. Absent: systolic murmur, diastolic murmur, rubs, gallop - GI/Abdominal GI/Abdominal exam: Present: soft, normal bowel sounds. Absent: tenderness, guarding, rigid, hyperactive bowel sounds - Rectal Rectal exam: Present: deferred - Extremities Exam Extremities exam: Present: normal inspection, full ROM, normal capillary refill - Back Exam Back exam: Present: normal inspection, full ROM. Absent: tenderness, CVA tenderness (R), muscle spasm, vertebral tenderness - Neurological Exam Neurological exam: Present: alert, oriented X3, CN II-XII intact, normal gait, reflexes normal - Psychiatric Psychiatric exam: Present: normal affect, normal mood - Skin Skin exam: Present: warm, dry, intact, normal color. Absent: rash ED Course Vital Signs 04/26/19 04/26/19 20:33 23:05 Temperature 99.6 F 100.8 F H Pulse Rate 79 63 Respiratory 18 18 Rate Blood Pressure 186/114 Blood Pressure 155/93 [Left] O2 Sat by Pulse 97 99 Oximetry - Reevaluation(s) Reevaluation #1: 04/26/19 23:36 This is a 33-year-old male who presented to the ED with acute onset persistent frontal sinus headache, sinus pressure, nasal and sinus congestion, dry cough and subjective fever and chills with dry, shortness of breath for the last 2 days. In the ED, is alert and oriented x 3 and is in no acute distress. Patient is febrile in the room. Patient was treated for pain and chest x-ray shows no acute fractures or subluxations. On reevaluation, patient's fever has resolved and patient feeling better and was discharged home on medications including antibiotics for acute sinusitis. Patient was advised to follow up with his PCP in 7-10 days for reevaluation or return to the ED immediately if symptoms get worse ED Medical Decision Making - Lab Data Result diagrams: 04/26/19 21:11 04/26/19 21:11 - Radiology Data Radiology results: report reviewed, image reviewed Chest x-ray shows no acute cardiopulmonary abnormalities. - Medical Decision Making This is a 33-year-old male who presented to the ED with acute onset persistent frontal sinus headache, sinus pressure, nasal and sinus congestion, dry cough and subjective fever and chills with dry, shortness of breath for the last 2 days. In the ED, is alert and oriented x 3 and is in no acute distress. Patient is febrile in the room. Patient was treated for pain and chest x-ray shows no acute fractures or subluxations. On reevaluation, patient's fever has resolved and patient feeling better and was discharged home on medications including antibiotics for acute sinusitis. Patient was advised to follow up with his PCP in 7-10 days for reevaluation or return to the ED immediately if symptoms get worse - Differential Diagnosis sinusitis; acute URI; Flu like, Critical care attestation.: If time is entered above; I have spent that time in minutes in the direct care of this critically ill patient, excluding procedure time. ED Disposition Clinical Impression: Acute bacterial sinusitis, Acute upper respiratory infection, Fever with chill s, Flu-like symptoms Disposition: TO HOME OR SELFCARE Is pt being admited?: No Does the pt Need Aspirin: No Condition: Stable Instructions: Acute Bacterial Rhinosinusitis (ED), Acute Headache (ED), Fever in Adults (ED) Additional Instructions: Take medication with food, drink plenty of fluids and follow-up with your primary care physician in 7-10 days for reevaluation. Return to the ED immediately if symptoms get worse. Prescriptions: Acetaminophen [Tylenol] 500 mg PO Q6HR PRN #30 tablet PRN Reason: Fever >101 amLODIPine 10 mg PO DAILY #30 tab Amoxicillin/Potassium Clav [Augmentin 875-125 Tablet] 1 each PO Q12H #20 tablet Butalb/Acetamin/Caff 50-325-40 [Fioricet 50-325-40] 1 tab PO Q6HR PRN #12 tab PRN Reason: Headache Cetirizine HCl [Zyrtec 10mg tab] 10 mg PO DAILY #30 tablet [facility] IV[facility] [Primary Care Provider] - 3-5 Days Time of Disposition: 23:26 Print Language: AUSTRALIAN
== END 2019-04-27 00:05 | disposition home or self-care (01) ==
LOC: ED 20:29
DX: J01.90 Acute sinusitis, unspecified (principal); J06.9 Acute upper respiratory infection, unspecified; I11.0 Hypertensive heart disease with heart failure; I50.9 Heart failure, unspecified; Z79.899 Other long term (current) drug therapy
CPT/HCPCS: 36415; 71046; 80053; 85025; 96372; 99283; J1100; J1885

== ENCOUNTER 2019-07-05 12:38 | Emergency (ER) | payer OTHER ==
--- NOTE | 2019-07-05 14:41 | Emergency Department Report ---
Chief Complaint: Headache Stated Complaint: HEAD/BACK PAIN Time Seen by Provider: 07/05/19 14:36 - HPI History of Present Illness: 33 y/o male comes in for a headache. Has ran out of his blood medications 2 months. Has never followed up with a PCP. - Exam Vital Signs: Vital Signs 07/05/19 13:19 Temperature 98.8 F Pulse Rate 85 Respiratory 16 Rate Blood Pressure 129/77 O2 Sat by Pulse 96 Oximetry Physical Exam: AxO times 3 NAD Neuro : EMOI, PERRA, finger to nose intact, rhomberg intact heel down barron intact. gait normal, Strength 4/5 all extremities. MSE screening note: Focused history and physical exam performed. Due to findings the following was ordered: Ibuprofen 600 mg patient to be eval in the back. ED Disposition for MSE Condition: Stable
[2019-07-05] MEDS ORDERED: IBUPROFEN 600 MG TAB PO ONE ×2 (14:43→14:46)
--- NOTE | 2019-07-05 15:53 | Emergency Department Report ---
HPI - General Chief Complaint: Headache Time Seen by Provider: 07/05/19 14:36 - HPI HPI: Room 35 The patient is a 33-year-old male presenting with a chief complaint of headache and cough. The patient states she's had a constant headache in the frontal region for the past 4 days. Patient also admits to cough is occasionally productive of yellow sputum for the same amount of time. Patient complains of chest pain whenever he coughs. Patient admits to subjective fever. Patient denies recent trauma. Patient denies nausea or vomiting. Location: [See above] Duration: [See above] Quality: [See above] Severity: [See above] Timing: [See above] Context: [See above] Modifying factors: [See above] Associated signs and symptoms: [see above] ED Past Medical Hx - Past Medical History Hx Hypertension: Yes Hx Congestive Heart Failure: Yes Hx Renal Disease: Yes Hx Psychiatric Treatment: Yes Additional medical history: Questionable history of hep C,right knee/leg pain,anxiety disorder pt. denies any history, intellectual disability - Surgical History Past Surgical History?: No Additional Surgical History: patient denies any surgeries - Social History Smoking Status: Never Smoker Substance Use Type: None (denies illicit drug use) - Medications Home Medications: Home Medications Medication Instructions Recorded Confirmed Last Taken Type oxyCODONE /ACETAMINOPHEN [Percocet 1 tab PO Q6H PRN #15 tablet 02/08/19 Unknown Rx 5/325 mg] Naproxen 500 mg PO UNK PRN #30 tablet 04/03/19 Unknown Rx Acetaminophen [Tylenol] 500 mg PO Q6HR PRN #30 tablet 04/26/19 Unknown Rx Amoxicillin/Potassium Clav 1 each PO Q12H #20 tablet 04/26/19 Unknown Rx [Augmentin 875-125 Tablet] Butalb/Acetamin/Caff 50-325-40 1 tab PO Q6HR PRN #12 tab 04/26/19 Unknown Rx [Fioricet 50-325-40] Cetirizine HCl [Zyrtec 10mg tab] 10 mg PO DAILY #30 tablet 04/26/19 Unknown Rx amLODIPine 10 mg PO DAILY #30 tab 04/26/19 Unknown Rx Azithromycin [Zithromax Z-ENID] 0 mg PO DAILY #6 tab 07/05/19 Unknown Rx Benzonatate [Tessalon Perles] 100 mg PO Q8HR #30 capsule 07/05/19 Unknown Rx HYDROcodone/APAP 5-325 [[place] 1 - 2 each PO Q6HR PRN #10 tablet 07/05/19 Unknown Rx 5/325] Ibuprofen [Motrin 800 MG tab] 800 mg PO Q8HR PRN #20 tablet 07/05/19 Unknown Rx ED Review of Systems ROS: Stated complaint: HEAD/BACK PAIN Other details as noted in HPI Constitutional: fever (subjective) Eyes: denies: eye pain ENT: denies: throat pain Respiratory: cough Musculoskeletal: myalgia Physical Exam - Physical Exam Vital Signs: Vital Signs 07/05/19 13:19 Temperature 98.8 F Pulse Rate 85 Respiratory 16 Rate Blood Pressure 129/77 O2 Sat by Pulse 96 Oximetry Physical Exam: GENERAL: The patient is well-developed well-nourished male sitting in chair not appearing to be in acute distress. [] HEENT: Normocephalic. Atraumatic. Extraocular motions are intact. Patient has moist mucous membranes. NECK: Supple. Trachea midline CHEST/LUNGS: Clear to auscultation. There is no respiratory distress noted. HEART/CARDIOVASCULAR: Regular. There is no tachycardia. There is no gallop rub or murmur. ABDOMEN: Abdomen is soft, nontender. Patient has normal bowel sounds. There is no abdominal distention. SKIN: There is no rash. There is no edema. There is no diaphoresis. NEURO: The patient is awake, alert, and oriented. The patient is cooperative. The patient has no focal neurologic deficits. The patient has normal speech. Cranial nerves II through XII grossly intact, no drift MUSCULOSKELETAL: There is no evidence of acute injury. ED Course Vital Signs 07/05/19 13:19 Temperature 98.8 F Pulse Rate 85 Respiratory 16 Rate Blood Pressure 129/77 O2 Sat by Pulse 96 Oximetry ED Medical Decision Making - Radiology Data Radiology results: report reviewed (chest x-ray, CT head), image reviewed (chest x-ray, CT head) [facility] [address] [place] [address] XRay Report Signed Patient: HEATHER LEVINE MR# : [id number] : 1985 Acct:[id number] Age/Sex: 33 / M ADM Date: 07/05/19 Loc: ED Attending Dr: Ordering Physician: SALINA WAGNER MD Date of Service: 07/05/19 Procedure(s): XR chest routine 2V Accession Number(s): [id number] cc: SALINA WAGNER MD Fluoro Time In Minutes: CHEST 2 VIEWS INDICATION / CLINICAL INFORMATION: productive cough. COMPARISON: Chest x-ray 04/26/2019 FINDINGS: SUPPORT DEVICES: None. HEART / MEDIASTINUM: No significant abnormality. LUNGS / PLEURA: No significant pulmonary or pleural abnormality. No pneumothorax. ADDITIONAL FINDINGS: No significant additional findings. IMPRESSION: 1. No acute findings. Signer Name: Farooq Dacosta MD Signed: 07/05/2019 4:04 PM Workstation Name: [id number] Transcribed By: TL Dictated By: Farooq Dacosta MD Electronically Authenticated By: Farooq Dacosta MD Signed Date/Time: 07/05/191603 DD/ 03 TD/TT: [place] [address] Cat Scan Report Signed Patient: HEATHER LEVINE MR# : [id number] : 1985 Acct:[id number] Age/Sex: 33 / M ADM Date: 07/05/19 Loc: ED Attending Dr: Ordering Physician: SALINA WAGNER MD Date of Service: 07/05/19 Procedure(s): CT head/brain wo con Accession Number(s): [id number] cc: SALINA WAGNER MD NONENHANCED CT SCAN OF THE HEAD: INDICATION / CLINICAL INFORMATION: 33 years Male; headache. TECHNIQUE: Routine CT head without contrast. All CT scans at this location are performed using CT dose reduction for ALARA by means of automated exposure control. COMPARISON: CT scan of the brain from March 2019 and MRI scan of the brain from 04/18/2018 FINDINGS: BRAIN / INTRACRANIAL CONTENTS: No acute hemorrhage, mass effect, midline shift, hydrocephalus, or acute, large territorial infarct. No chronic infarct or focal atrophy. Normal brain volume and ventricular/sulcal size for age. Asymmetry of the lateral ventricles is considered to be within normal limits. No significant white matter abnormality. CRANIOCERVICAL JUNCTION: No significant abnormality. ORBITS: No significant abnormality of visualized orbits. SINUSES / MASTOIDS: No significant abnormality of the visualized paranasal sinuses or mastoid air cells. ADDITIONAL FINDINGS: None. IMPRESSION: No focal parenchymal lesion in the brain CT findings remain unchanged since 04/17/2018. Signer Name: Roz Morales MD Signed: 07/05/2019 4:55 PM Workstation Name: [email or web address] Transcribed By: BS Dictated By: Roz Simms MD Electronically Authenticated By: Roz Simms MD Signed Date/Time: 07/05/191654 DD/ 50 TD/TT: - Differential Diagnosis headache, bronchitis, pneumothorax, pneumonia Critical care attestation.: If time is entered above; I have spent that time in minutes in the direct care of this critically ill patient, excluding procedure time. ED Disposition Clinical Impression: Bronchitis, Headache Disposition: - TO HOME OR SELFCARE Is pt being admited?: No Does the pt Need Aspirin: No Condition: Stable Instructions: Acute Bronchitis (ED) Additional Instructions: Return to the emergency department should you develop worsening symptoms, inability to tolerate food or liquids, high fever or any other concerns Prescriptions: Ibuprofen [Motrin 800 MG tab] 800 mg PO Q8HR PRN #20 tablet PRN Reason: Pain, Moderate (4-6) HYDROcodone/APAP 5-325 [[place] 5/325] 1 - 2 each PO Q6HR PRN #10 tablet PRN Reason: Pain Benzonatate [Tessalon Perles] 100 mg PO Q8HR #30 capsule Azithromycin [Zithromax Z-ENID] 0 mg PO DAILY #6 tab Referrals: MIRIAN PANCHAL MD [Staff Physician] - 3-5 Days (Dr. Panchal is a primary physician. Please follow with him to be established as a patient if you do not already have a primary doctor.) JOSE G HORTON MD [Staff Physician] - 3-5 Days (Dr Horton is a neurologist. Please follow up with him for further evaluation) Time of Disposition: 17:11
--- NOTE | 2019-07-05 16:09 | XRay Report ---
CHEST 2 VIEWS INDICATION / CLINICAL INFORMATION: productive cough. COMPARISON: Chest x-ray 04/26/2019 FINDINGS: SUPPORT DEVICES: None. HEART / MEDIASTINUM: No significant abnormality. LUNGS / PLEURA: No significant pulmonary or pleural abnormality. No pneumothorax. ADDITIONAL FINDINGS: No significant additional findings. IMPRESSION: 1. No acute findings. Signer Name: Farooq Dacosta MD Signed: 07/05/2019 4:04 PM Workstation Name: [id number]
--- NOTE | 2019-07-05 16:59 | Cat Scan Report ---
NONENHANCED CT SCAN OF THE HEAD: INDICATION / CLINICAL INFORMATION: 33 years Male; headache. TECHNIQUE: Routine CT head without contrast. All CT scans at this location are performed using CT dos e reduction for ALARA by means of automated exposure control. COMPARISON: CT scan of the brain from March 2019 and MRI scan of the brain from 04/18/2018 FINDINGS: BRAIN / INTRACRANIAL CONTENTS: No acute hemorrhage, mass effect, midline shift, hydrocephalus, or ac [place], large territorial infarct. No chronic infarct or focal atrophy. Normal brain volume and ventricu lar/sulcal size for age. Asymmetry of the lateral ventricles is considered to be within normal limits . No significant white matter abnormality. CRANIOCERVICAL JUNCTION: No significant abnormality. ORBITS: No significant abnormality of visualized orbits. SINUSES / MASTOIDS: No significant abnormality of the visualized paranasal sinuses or mastoid air stef ls. ADDITIONAL FINDINGS: None. IMPRESSION: No focal parenchymal lesion in the brain CT findings remain unchanged since 04/17/2018. Signer Name: Roz Morales MD Signed: 07/05/2019 4:55 PM Workstation Name: [id number]
[2019-07-05 17:29] VITALS: BP 124/74
== END 2019-07-05 17:27 | disposition home or self-care (01) ==
LOC: ED 12:38
DX: J40 Bronchitis, not specified as acute or chronic (principal); I11.0 Hypertensive heart disease with heart failure; I50.9 Heart failure, unspecified; Z79.899 Other long term (current) drug therapy
CPT/HCPCS: 70450; 71046; 94640

== ENCOUNTER 2020-08-07 17:09 | Emergency (ER) | payer OTHER ==
[2020-08-07 17:34] VITALS: BP 142/72
--- NOTE | 2020-08-07 17:51 | Emergency Department Report ---
Upper Extremity - HPI Chief Complaint: Extremity Injury, Upper Stated Complaint: RT HAND PAIN Time Seen by Provider: 08/07/20 17:40 Upper Extremity: Right Wrist, Right Hand Occurred When: 5 Days Other History: 35-year-old -[place] African male with multiple hospital visits comes in for right hand pain that is been going on intermittently for 3 years. Patient states in the last 5 days she started to have pain. Patient has taken nothing for his pain. Patient states he has put some ice on it and heat. Patient denies any injury. ED Review of Systems ROS: Stated complaint: RT HAND PAIN Other details as noted in HPI ED Past Medical Hx - Past Medical History Hx Hypertension: Yes Hx Congestive Heart Failure: Yes Hx Diabetes: No Hx Renal Disease: Yes Hx Psychiatric Treatment: Yes Hx Asthma: No Hx COPD: No Additional medical history: Questionable history of hep C,right knee/leg pain,anxiety disorder pt. denies any history, intellectual disability - Surgical History Additional Surgical History: patient denies any surgeries - Social History Smoking Status: Never Smoker Substance Use Type: None - Medications Home Medications: Home Medications Medication Instructions Recorded Confirmed Last Taken Type oxyCODONE /ACETAMINOPHEN [Percocet 1 tab PO Q6H PRN #15 tablet 02/08/19 Unknown Rx 5/325 mg] Naproxen 500 mg PO UNK PRN #30 tablet 04/03/19 Unknown Rx Acetaminophen [Tylenol] 500 mg PO Q6HR PRN #30 tablet 04/26/19 Unknown Rx Amoxicillin/Potassium Clav 1 each PO Q12H #20 tablet 04/26/19 Unknown Rx [Augmentin 875-125 Tablet] Butalb/Acetamin/Caff 50-325-40 1 tab PO Q6HR PRN #12 tab 04/26/19 Unknown Rx [Fioricet 50-325-40] Cetirizine HCl [Zyrtec 10mg tab] 10 mg PO DAILY #30 tablet 04/26/19 Unknown Rx amLODIPine 10 mg PO DAILY #30 tab 04/26/19 Unknown Rx Azithromycin [Zithromax Z-ENID] 0 mg PO DAILY #6 tab 07/05/19 Unknown Rx Benzonatate [Tessalon Perles] 100 mg PO Q8HR #30 capsule 07/05/19 Unknown Rx HYDROcodone/APAP 5-325 [Lawtey 1 - 2 each PO Q6HR PRN #10 tablet 07/05/19 Unknown Rx 5/325] Ibuprofen [Motrin 800 MG tab] 800 mg PO Q8HR PRN #20 tablet 07/05/19 Unknown Rx Upper Extremity Exam - Exam General: Vital signs noted. No distress. Alert and acting appropriately. Head and Torso: No HEENT Abnormality, No Neck Tenderness, No Chest/Lungs Abnormality, No Abdominal Tenderness, No Back Tenderness Shoulder Exam: Yes Normal Range of Motion in Shoulder, No Shoulder Tenderness, No Clavicle Tenderness, No Shoulder Deformity, No AC Joint Tenderness Arm Exam: No Arm/Humerus Tenderness, No Arm Deformity Elbow: Yes Normal Range of Motion in Elbow, No Elbow Tenderness, No Elbow Deformity Forearm: No Forearm Tenderness, No Forearm Deformity, No Pain with Pronation, No Pain with Supination Wrist: Yes Normal ROM in Wrist, No Wrist Tenderness, No Wrist Deformity, No Snuffbox Tenderness, No Pain with Axial Thumb Compression Hand: Yes Hand Tenderness, Yes Normal ROM in Digit(s), No Hand Deformity, No Digit Tenderness, No Digit(s) Deformity, No Tendon Dysfunction CMS Exam: Yes Normal Distal Pulses, Yes Normal Capillary Refill, Yes Normal Distal Sensation, No Broken Skin ED Course Vital Signs 08/07/20 17:30 Temperature 98.6 F Pulse Rate 77 Respiratory 20 Rate Blood Pressure 142/72 O2 Sat by Pulse 97 Oximetry ED Medical Decision Making - Radiology Data Radiology results: report reviewed Patient: HEATHER LEVINE MR# : [id number] : 1985 Acct:[id number] Age/Sex: 35 / M ADM Date: 08/07/20 Loc: ED Attending Dr: Ordering Physician: DAMARIS DELANEY Date of Service: 08/07/20 Procedure(s): XR hand 2V RT Accession Number(s): [id number] cc: DAMARIS DELANEY Fluoro Time In Minutes: RIGHT HAND 2 VIEW(S) INDICATION / CLINICAL INFORMATION: rt hand pain COMPARISON: None available. FINDINGS: BONES / JOINT(S): No acute fracture or subluxation. No significant arthritis. SOFT TISSUES: No significant abnormality. ADDITIONAL FINDINGS: None. IMPRESSION: No acute osseous abnormality. Signer Name: Killian Davila MD Signed: 08/07/2020 6:10 PM Workstation Name: [id number] Transcribed By: SS Dictated By: KILLIAN DAVILA Electronically Authenticated By: KILLIAN DAVILA Signed Date/Time: 08/07/201809 DD/ 08 TD/TT: - Medical Decision Making 35-year-old -[place] male with multiple hospital visits comes in for right hand pain that is been going on intermittently for 3 years. Patient states in the last 5 days she started to have pain. Patient has taken nothing for his pain. Patient states he has put some ice on it and heat. Patient denies any injury. X-ray is negative for any acute findings. Patient can take Tylenol ibuprofen for pain. Follow-up with a primary care provider. Critical care attestation.: If time is entered above; I have spent that time in minutes in the direct care of this critically ill patient, excluding procedure time. ED Disposition Clinical Impression: Right hand pain Disposition: DC-01 TO HOME OR SELFCARE Is pt being admited?: No Does the pt Need Aspirin: No Condition: Stable Instructions: Pain Without a Known Cause Additional Instructions: X-ray is negative for any fractures or subluxation or dislocation. Recommend Tylenol ibuprofen for pain. Follow-up with a primary care provider. Referrals: [facility] [Provider Group] - 3-5 Days
--- NOTE | 2020-08-07 18:14 | XRay Report ---
RIGHT HAND 2 VIEW(S) INDICATION / CLINICAL INFORMATION: rt hand pain COMPARISON: None available. FINDINGS: BONES / JOINT(S): No acute fracture or subluxation. No significant arthritis. SOFT TISSUES: No significant abnormality. ADDITIONAL FINDINGS: None. IMPRESSION: No acute osseous abnormality. Signer Name: Gabe Davila MD Signed: 08/07/2020 6:10 PM Workstation Name: [id number]
== END 2020-08-07 18:43 | disposition home or self-care (01) ==
LOC: ED 17:09
DX: M79.641 Pain in right hand (principal); I11.0 Hypertensive heart disease with heart failure; I50.9 Heart failure, unspecified; Z79.899 Other long term (current) drug therapy
CPT/HCPCS: 99283